=== PATIENT | female | born 2000 | race Caucasian/White ===

== ENCOUNTER 2019-12-08 17:09 | Outpatient (CLI) | payer BC, SELFPAY ==
[2019-12-08 17:33] LABS: Hematocrit 38.3 % (37.0-47.0); Hemoglobin 13.1 g/dL (12.0-15.0); Mean Corpuscular HGB Conc 34.2 g/dl (32-36); Mean Corpuscular Hemoglobin 30.8 pg (26-34); Mean Corpuscular Volume 89.9 fl (80-100); Mean Platelet Volume 9.4 fl (7.4-10.4); Platelet Count Result 352 k/mm3 (150-375); Red Blood Count 4.26 M/mm3 (4.2-5.4); White Blood Count 7.5 K/mm3 (4.5-10.0)
[2019-12-08 17:36] LABS: Add Urine Microscopic? NO; Appearance Urine Clear (Clear); Bilirubin Urine Negative (Negative); Blood Urine Negative (Negative); Color Urine Colorless (Yellow); Glucose Urine UA Negative (Negative); Ketones Urine Negative (Negative); Leukocyte Esterase Ur Negative LEU/UL (Negative); Nitrate Urine Negative (Negative); Protein Urine Negative (Negative); Specific Grav Ur 1.005 (1.001-1.035); Urobilinogen Urine Negative mg/dL (<2.0)
[2019-12-08 17:48] LABS: Alanine Aminotransferase 15 U/L (4-35); Albumin Level 4.5 g/dL (3.5-5.1); Alkaline Phosphatase 61 U/L (38-126); Aspartate Amino Transferase 14 U/L (14-36); Bilirubin,Total 0.3 mg/dL (0.2-1.3); Blood Urea Nitrogen 10 mg/dL (7-17); CRP 0.9 mg/dL (<1.0); Calcium 9.5 mg/dL (8.4-10.2); Carbon Dioxide 28 mmol/L (22-30); Chloride 102 mmol/L (98-107); Estimated Glomerular Filt Rate > 60; Glucose 89 mg/dL (65-105); Potassium 3.9 mmol/L (3.4-5.0); Sodium 138 mmol/L (137-145)
== END 2019-12-08 17:10 | disposition home or self-care (01) ==
PROVIDERS: Visit Provider Internal Medicine
DX: M32.9 Systemic lupus erythematosus, unspecified (principal)
CPT/HCPCS: 36415; 80053; 81003; 85027; 86140

== ENCOUNTER 2020-06-01 21:35 | Emergency (ER) | payer BC, SELFPAY ==
[2020-06-01 21:58] VITALS: BP 126/80; PULSE 90; RESP 16; TEMP 36.7; O2SAT 99
--- NOTE | 2020-06-01 22:45 | ED.GENADULT ---
HPI - General Adult General Chief complaint: Unspecified Stated complaint: ongoing nausea and vomiting. Time Seen by Provider: 06/01/20 22:45 History of Present Illness HPI narrative: Nausea, vomiting, diarrhea, and abdominal pain for the past month. She reports that she has not been consistently been able to tolerate solid foods for that entire time. She can usually keep down fluids. She reports that she has had consistent diarrhea since onset. It did improve with loperamide, but returned after stopping. The abdominal pain is diffuse, crampy. Worse with eating. No urinary symptoms. No fever. The symptoms started after eating peaches that were recalled for salmonella. She was apparently told that she probably had it, but never tested. She has SLE. Related Data Home Medications Medication Instructions Recorded Confirmed lamotrigine 100 mg tablet 100 mg PO DAILY 01/01/20 Allergies Allergy/AdvReac Type Severity Reaction Status Date / Time No Known Allergies Allergy Unverified 09/21/19 10:13 Review of Systems Review of Systems: All systems reviewed & are unremarkable except as noted in HPI and below Constitutional: Constitutional: Denies chills and Denies fever(s) Cardiovascular: Cardiovascular: Denies chest pain Respiratory: Respiratory: Denies dyspnea Gastrointestinal: Gastrointestinal: Reports abdominal pain, Reports bloating, Reports diarrhea, Reports nausea and Reports vomiting Genitourinary: Genitourinary: Denies hematuria and Denies dysuria Musculoskeletal: Musculoskeletal: Denies back pain Integumentary/Breasts: Skin/Breast: Reports rash Neurologic: Denies confusion, Reports dizziness and Denies weakness PMFSH Past Medical History Medical History Anxiety Arthritis Depression Lupus Migraines Family History Family History Mother Thyroid disease Social History Social History Smoking status: Never smoker Alcohol intake: never Exam Const: General: healthy appearing, no acute distress and alert Orientation/consciousness: patient oriented x3 HENMT: Head: normal to inspection Neck: Neck: normal visual inspection and no lymphadenopathy Chest: Chest palpation & inspection: no tenderness Resp: Effort & Inspection: normal respiratory effort Auscultation: clear to auscultation bilaterally, no rales, no rhonchi and no wheezes Cardio: Jugular venous distension: no JVD Rate: regular rate Rhythm: regular rhythm Heart sounds: no murmurs GI: Inspection: non-distended GI Palp: Yes Soft to palpation, Yes Tenderness to palpation present (GI), No Guarding due to palpation present (GI) and No Rebound tenderness present Skin: General skin exam: normal color Neuro: General: patient oriented x3, moves all extremities and CN's II-XI intact bilaterally Speech: normal speech Extrem: General: no edema Psych: Appearance: grossly normal and well kempt Affect: Anxious affect present Course Vital Signs Vital signs: Vital Signs Temperature 36.7 C 06/01/20 21:58 Pulse Rate 90 06/01/20 21:58 Respiratory Rate 16 06/01/20 21:58 Blood Pressure 126/80 06/01/20 21:58 Pulse Oximetry 99 06/01/20 21:58 Temperature 36.8 C 06/01/20 23:58 Pulse Rate 84 06/01/20 23:58 Respiratory Rate 16 06/01/20 23:58 Blood Pressure 121/76 06/01/20 23:58 Pulse Oximetry 100 06/01/20 23:58 Medical Decision Making MDM Narrative Medical decision making narrative: She appears well. I will obtain labs to rule out more serious pathology and send stool studies. In the mean time I will hydrate and treat symptomatically Medical Records Medical records reviewed: Yes I reviewed the patient's medical records. Vital Signs Vital Signs: Vital Signs Temperature 36.7 C 06/01/20 21:58 Pulse Rate 90 06/01/20 21:58 Respirato
[2020-06-01 23:11] LABS: Basophils Percent Auto 0.2 % (0.2-1.2); Eosinophils Percent Auto 0.5 % (0-4.4); Hematocrit 36.9 % (37.0-47.0); Hemoglobin 13.3 g/dL (12.0-15.0); Immature Granulocyte Absolute 0.04 K/mm3 (0.00-0.031); Immature Granulocyte Percent A 0.5 % (0-0.5); Lymphocytes Absolute Auto 1.35 K/mm3 (0.9-3.2); Lymphocytes Percent Auto 15.3 % (18.3-44.2); Mean Corpuscular Hemoglobin 31.3 pg (26-34); Mean Corpuscular Volume 86.8 fl (80-100); Mean Platelet Volume 9.3 fl (7.4-10.4); Monocytes Absolute Auto 0.7 K/mm3 (0.1-0.6); Monocytes Percent Auto 7.4 % (2.6-8.5); Neutrophils Absolute Auto 6.7 K/mm3 (1.3-6.7); Neutrophils Percent Auto 76.1 % (45.5-73.1); Platelet Count Result 359 k/mm3 (150-375); Red Blood Count 4.25 M/mm3 (4.2-5.4); Red Cell Distribution Width 12.6 % (11.5-14.5); White Blood Count 8.8 K/mm3 (4.5-10.0)
[2020-06-01] MEDS: DICYCLOMINE HCL INJ 20 MG/2 ML VIAL IM (23:11)
[2020-06-01] MEDS: SODIUM CHLORIDE 0.9% IV 1,000 ML 999 ML IV CONT (23:12)
[2020-06-01 23:21] LABS: Alanine Aminotransferase 37 U/L (4-35); Albumin Level 4.4 g/dL (3.5-5.1); Alkaline Phosphatase 67 U/L (38-126); Anion Gap 6 mmol/L (8-16); Aspartate Amino Transferase 17 U/L (14-36); Bilirubin,Total 0.3 mg/dL (0.2-1.3); Blood Urea Nitrogen 11 mg/dL (7-17); Calcium 9.4 mg/dL (8.4-10.2); Carbon Dioxide 26 mmol/L (22-30); Chloride 105 mmol/L (98-107); Estimated CRCL calculation 107 ml/min; Estimated Glomerular Filt Rate > 60; Glucose 108 mg/dL (65-105); Lipase 32 U/L (23-300); Potassium 3.5 mmol/L (3.4-5.0); Sodium 137 mmol/L (137-145)
[2020-06-01 23:33] LABS: Add Urine Microscopic? YES; Appearance Urine Clear (Clear); Bilirubin Urine Negative (Negative); Blood Urine 2+ (Negative); Color Urine Yellow (Yellow); Glucose Urine UA Negative (Negative); Ketones Urine Negative (Negative); Leukocyte Esterase Ur Negative LEU/UL (Negative); Nitrate Urine Negative (Negative); Protein Urine Negative (Negative); RBC Urine 0-2 /hpf (0-2); Squamous Epithelial Cell Urine Occasional /hpf (Few); Urobilinogen Urine Negative mg/dL (<2.0); WBC Urine 0-3 /hpf
[2020-06-01 23:58] VITALS: BP 121/76; PULSE 84; RESP 16; TEMP 36.8; O2SAT 100
== END 2020-06-02 | disposition home or self-care (01) ==
PROVIDERS: Emergency Provider Emergency Medicine
DX: R19.7 Diarrhea, unspecified (principal); R11.2 Nausea with vomiting, unspecified; R10.84 Generalized abdominal pain
CPT/HCPCS: 36415; 80053; 81001; 81025; 83690; 85025; 96360; 96372; 99283; J0500; J7030

== ENCOUNTER 2020-06-05 14:54 | Emergency (ER) | payer BC, SELFPAY ==
--- NOTE | ~2020-06-05 | XR_ITS ---
XR chest 2V DATE: 06/05/2020 16:01 INDICATION: Shortness of breath. Dizziness. Left facial and arm numbness. History of lupus. TECHNIQUE: PA and lateral views COMPARISON: 01/16/2019 PA and lateral chest FINDINGS: Normal heart size. No hilar or mediastinal enlargement. No pulmonary infiltrate or consolid ation, pleural effusion or pulmonary vascular congestion or pneumothorax. IMPRESSION: No active cardiopulmonary disease Reviewed, dictated and finalized at location A.
[2020-06-05 14:56] VITALS: BP 133/82; PULSE 120; RESP 18; TEMP 37.3; O2SAT 99
--- NOTE | 2020-06-05 14:59 | ECG_ITS ---
Measurements Intervals [place] Rate: 118 P: 66 DE: 166 QRS: 50 QRSD: 82 T: 91 QT: 434 QTc: 608 Interpretive Statements SINUS TACHYCARDIA POSSIBLE RIGHT ATRIAL ENLARGEMENT MINIMAL Q WAVES- INFERIOR LEADS BORDERLINE T WAVE ABNORMALITY- INF/LAT LEADS ABNORMAL ECG Electronically Signed On 06-05-2020 15:36:29 CDT by Chalino Shelley D.O.
[2020-06-05 15:17] LABS: Basophils Percent Auto 0.5 % (0.2-1.2); Eosinophils Percent Auto 0.5 % (0-4.4); Hematocrit 36.9 % (37.0-47.0); Immature Granulocyte Absolute 0.02 K/mm3 (0.00-0.031); Immature Granulocyte Percent A 0.3 % (0-0.5); Lymphocytes Absolute Auto 1.45 K/mm3 (0.9-3.2); Lymphocytes Percent Auto 23.5 % (18.3-44.2); Mean Corpuscular HGB Conc 35.2 g/dl (32-36); Mean Corpuscular Hemoglobin 30.7 pg (26-34); Mean Corpuscular Volume 87.2 fl (80-100); Mean Platelet Volume 9.3 fl (7.4-10.4); Monocytes Absolute Auto 0.6 K/mm3 (0.1-0.6); Monocytes Percent Auto 9.4 % (2.6-8.5); Neutrophils Absolute Auto 4.1 K/mm3 (1.3-6.7); Neutrophils Percent Auto 65.8 % (45.5-73.1); Platelet Count Result 380 k/mm3 (150-375); Red Blood Count 4.23 M/mm3 (4.2-5.4); Red Cell Distribution Width 12.3 % (11.5-14.5); White Blood Count 6.2 K/mm3 (4.5-10.0)
[2020-06-05 15:34] LABS: Alanine Aminotransferase 80 U/L (4-35); Albumin Level 4.3 g/dL (3.5-5.1); Alkaline Phosphatase 65 U/L (38-126); Anion Gap 7 mmol/L (8-16); Aspartate Amino Transferase 27 U/L (14-36); Bilirubin,Total 0.4 mg/dL (0.2-1.3); Blood Urea Nitrogen 12 mg/dL (7-17); Calcium 9.3 mg/dL (8.4-10.2); Carbon Dioxide 23 mmol/L (22-30); Chloride 107 mmol/L (98-107); Estimated CRCL calculation 123 ml/min; Estimated Glomerular Filt Rate > 60; Glucose 122 mg/dL (65-105); Potassium 3.9 mmol/L (3.4-5.0); Sodium 137 mmol/L (137-145)
[2020-06-05 16:42] VITALS: BP 119/73; PULSE 104; RESP 20; O2SAT 99
[2020-06-05] MEDS: SODIUM CHLORIDE 0.9% IV 1,000 ML 999 ML IV CONT (17:01)
[2020-06-05] MEDS: FAMOTIDINE 20 MG/2 ML VIAL IV PUSH (17:02)
[2020-06-05] MEDS: PROCHLORPERAZINE EDISYLATE 10 MG/2 ML VIAL IV PUSH (17:02)
[2020-06-05 17:11] LABS: D Dimer 0.29 ug/mL (<0.48)
[2020-06-05 17:45] LABS: Add Urine Microscopic? YES; Appearance Urine Clear (Clear); Bacteria Urine Trace /hpf; Bilirubin Urine Negative (Negative); Blood Urine 3+ (Negative); Color Urine Yellow (Yellow); Glucose Urine UA Negative (Negative); Ketones Urine Negative (Negative); Leukocyte Esterase Ur Negative LEU/UL (Negative); Mucus Urine Rare /lpf; Nitrate Urine Negative (Negative); Protein Urine Negative (Negative); RBC Urine 0-2 /hpf (0-2); Squamous Epithelial Cell Urine Many /hpf (Few); Urobilinogen Urine Negative mg/dL (<2.0); WBC Urine 0-3 /hpf
--- NOTE | 2020-06-05 18:09 | ED.GENADULT ---
HPI - General Adult General Chief complaint: Unspecified <Young Priest PA-C - Last Filed: 06/05/20 18:17> Stated complaint: difficulty standing up <SAMREEN Najera Last Filed: 06/05/20 18:17> Time Seen by Provider: 06/05/20 16:28 <SAMREEN Najera Last Filed: 06/05/20 18:17> Source: patient, family and old records reviewed <SAMREEN Najera Last Filed: 06/05/20 18:17> Mode of arrival: ambulatory <SAMREEN Najera Last Filed: 06/05/20 18:17> Limitations: no limitations <SAMREEN Najera Last Filed: 06/05/20 18:17> History of Present Illness HPI narrative: Patient is a 20-year-old female who presents noting that she had an episode of nausea vomiting and dizziness that began acutely this morning had an episode of emesis followed by tingling in the extremities and weakness and fatigue and anxiety patient with similar occurrences in the past has history of PTSD and notes that she has been having flares patient is followed by rheumatology psychology and primary care on arrival patient in the room in no distress. <SAMREEN Najera Last Filed: 06/05/20 18:17> Related Data Home medications: Home Medications Medication Instructions Recorded Confirmed lamotrigine 100 mg tablet 100 mg PO DAILY 01/01/20 azathioprine [Imuran] 50 mg PO BID 06/05/20 bupropion HCl 75 mg PO DAILY 06/05/20 norgestimate-ethinyl estradiol 1 tablet PO DAILY 06/05/20 [Estarylla] <SAMREEN Najera Last Filed: 06/05/20 18:17> Allergies/adverse reactions: Allergies Allergy/AdvReac Type Severity Reaction Status Date / Time No Known Allergies Allergy Unverified 06/05/20 16:43 <SAMREEN Najera Last Filed: 06/05/20 18:17> Review of Systems Review of Systems: All systems reviewed & are unremarkable except as noted in HPI and below <SAMREEN Najera Last Filed: 06/05/20 18:17> PMFSH Past Medical History Medical History: Medical History Anxiety Arthritis Depression Lupus Migraines <Young Priest PA-C - Last Filed: 06/05/20 18:17> Social History Social History: Social History Smoking status: Never smoker Alcohol intake: never Gender identity (if verbalized by the patient): Female <Young Priest PA-C - Last Filed: 06/05/20 18:17> Exam Narrative: Exam Narrative: GENERAL: Well-appearing, well-nourished, and in no acute distress. HEAD: Normocephalic, atraumatic. EYES: PERRLA and EOMI. ENT: Nares clear, no rhinorrhea or epistaxis. Mucous membranes moist. Oropharynx without tonsillar hypertrophy exudate or other lesions. NECK: Supple. No adenopathy or masses. CHEST: Clear to auscultation. No respiratory distress. No wheezes rales or rhonchi HEART: Regular rate and rhythm. No murmur heard. EXTREMITIES: Normal range of motion. No edema. SKIN: Warm, dry, no rash. NEURO: No focal deficits. Alert and oriented x3. Cranial nerves II through XII grossly intact. Normal speech and gait PSYCH: Normal mood and affect. <Young Priest PA-C - Last Filed: 06/05/20 18:17> Course Course Emergency Course: Patient in the room at this time resting comfortably after medications is feeling much better requesting to be discharged noting that her symptoms have resolved and she feels comfortable with discharge home patient noted improvement with medications <Young Priest PA-C - Last Filed: 06/05/20 18:17> Vital Signs Vital signs: Vital Signs Temperature 37.3 C 06/05/20 14:56 Pulse Rate 120 H 06/05/20 14:56 Respiratory Rate 18 06/05/20 14:56 Blood Pressure 133/82 06/05/20 14:56 Pulse Oximetry 99 06/05/20 14:56 Temperature 37.3 C 06/05/20 14:56 Pulse Rate 104 H 06/05/20 16:42 Respiratory Rate 20 06/05/20 16:42 Blood Pressure 119/73 09/0
== END 2020-06-05 18:17 | disposition home or self-care (01) ==
PROVIDERS: Emergency Medicine Emergency Medical Services; Family Medicine; Emergency Provider Emergency Medicine
DX: R11.2 Nausea with vomiting, unspecified (principal); R42 Dizziness and giddiness; M19.90 Unspecified osteoarthritis, unspecified site; F41.9 Anxiety disorder, unspecified; F32.9 Major depressive disorder, single episode, unspecified; R00.0 Tachycardia, unspecified; R94.31 Abnormal electrocardiogram [ECG] [EKG]
CPT/HCPCS: 36415; 71046; 80053; 81001; 85025; 85380; 93005; 96361; 96374; 96375; 99284; J0780; J7030

== ENCOUNTER 2020-07-19 12:28 | Outpatient (CLI) | payer BC, SELFPAY ==
[2020-07-19 12:56] LABS: Alanine Aminotransferase 103 U/L (4-35); Albumin Level 4.6 g/dL (3.5-5.1); Alkaline Phosphatase 51 U/L (38-126); Aspartate Amino Transferase 24 U/L (14-36); Bilirubin,Total 0.4 mg/dL (0.2-1.3)
== END 2020-07-19 12:29 | disposition home or self-care (01) ==
PROVIDERS: Visit Provider Internal Medicine Gastroenterology
DX: R94.5 Abnormal results of liver function studies (principal)
CPT/HCPCS: 36415; 80076

== ENCOUNTER 2020-08-02 01:21 | Outpatient (CLI) | payer BC, SELFPAY ==
[2020-08-02 20:51] LABS: SARS-CoV-2 RNA PCR Negative
== END 2020-08-02 01:22 | disposition home or self-care (01) ==
LOC: ANHCOVIDDT 01:21
PROVIDERS: Visit Provider Internal Medicine Gastroenterology
DX: Z01.812 Encounter for preprocedural laboratory examination (principal); Z20.828 Contact with and (suspected) exposure to other viral communicable diseases
CPT/HCPCS: 87635; C9803; U0003

== ENCOUNTER 2020-08-04 01:44 | Day surgery (SDC) | payer BC, SELFPAY ==
[2020-07-27 13:49] VITALS: BMI 25.4
--- NOTE | 2020-08-03 12:27 | WPDANESEPPF ---
Anes - Initial Pre Proc Eval Procedure: Operation Date: 08/04/20 08:00 Proposed Procedures p Esophagogastroduodenoscopy - Justyn Adams MD Date/Time: 08/03/20 12:27 Surgeon: Justyn Adams MD Pre Op Diagnosis: Epigastric Pain Patient Data Age: 20 Gender: F Height: 1.63 m Weight: 67.2 kg Allergies Allergy/AdvReac Type Severity Reaction Status Date / Time No Known Allergies Allergy Verified 08/04/20 07:09 Home Medications Medication Instructions Recorded Confirmed Type lamotrigine 100 mg tablet 100 mg PO DAILY 01/01/20 07/27/20 History azathioprine [Imuran] 50 mg PO BID 06/05/20 07/27/20 History bupropion HCl 75 mg PO DAILY 06/05/20 07/27/20 History norgestimate-ethinyl estradiol 1 tablet PO DAILY 06/05/20 07/27/20 History [Estarylla] calcium polycarbophil [FiberCon] 1,250 mg PO DAILY 07/27/20 07/27/20 History dicyclomine 20 mg PO BID 07/27/20 07/27/20 History fluoxetine [Prozac] 20 mg PO DAILY 07/27/20 07/27/20 History hydroxychloroquine [Plaquenil] 200 mg PO DAILY 07/27/20 07/27/20 History pantoprazole 40 mg PO DAILY 07/27/20 07/27/20 History prednisone 5 mg PO DAILY 07/27/20 07/27/20 History Patient hx anesthesia problems: none Family hx anesthesia problems: none PMFSH Past Medical History Medical History (Updated 06/09/20 @ 00:00 by Evelyn Bhandari) Anxiety Arthritis Depression Lupus Migraines Family History Family History Mother Thyroid disease Social History Social History Years smoked: 1 Smoking status: Never smoker Alcohol intake: never Substance use: current Substance use type: marijuana Living arrangements: with family Gender identity (if verbalized by the patient): Female Spiritual care concerns: No Anes - Eval Final PreProcedure Day of Procedure 08/03/20 12:27 Patient weight: overweight Heart: regular rate and rhythm Lungs: clear to auscultation and normal air movement Airway: Mallampati scale class II Neurological: alert and oriented Last oral intake: >/= 8 hours ASA classification: III Emergent: no Anesthetic plan: proceed Anesthesia type and monitoring: general GIVS Informed Consent: The patient's anesthetic plan and its attendant risks and benefits were discussed with the patient/family/POA. Questions were solicited and answers provided to the satisfaction of the patient/family/POA.
[2020-08-04 07:10] VITALS: BP 113/69; PULSE 86; RESP 20; TEMP 37.1; O2SAT 100
[2020-08-04] MEDS: LACTATED RINGERS 1,000 ML 150 ML IV CONT (07:13)
--- NOTE | 2020-08-04 07:53 | WPDGICN ---
Assessment and Plan Assessment and plan (1) Epigastric abdominal pain: Code(s): R10.13 - Epigastric pain Status: Acute Assessment and Plan: Because of persistent epigastric pain plan is for further evaluation with EGD. Patient is currently treated with steroids raising the question of ulcer disease. She has seems to have improvement while being on PPI therapy further recommendations will be given after endoscopy. (2) SLE (systemic lupus erythematosus related syndrome): Code(s): M32.9 - Systemic lupus erythematosus, unspecified Status: Acute GI Consult Note Consult date/time: 08/04/20 07:53 HPI: Rosaura Eden is a 20 year old female Seen in evaluation because of abdominal pain. Patient reports midepigastric pain. She states that occurs intermittently. Rather persistent. She has a history of SLE ED. Recently placed on prednisone in concomitant with this notices some improvement in pain. She has empirically been treated with pantoprazole 40 mg p.o. daily. There is some concern over ulcers associated with steroid use. Family history is noncontributory. Patient denies any bleeding or weight loss. She presents today for EGD. Review of Systems Review of Systems: All systems reviewed & are unremarkable except as noted in HPI and below PMFSH Past Medical History Medical History (Updated 08/04/20 @ 07:55 by Justyn Adams MD) Anxiety Arthritis Depression Lupus Migraines Family History Family History Mother Thyroid disease Social History Social History Years smoked: 1 Smoking status: Never smoker Alcohol intake: never Substance use: current Substance use type: marijuana Living arrangements: with family Gender identity (if verbalized by the patient): Female Spiritual care concerns: No Meds Home Medications and Allergies Home Medications Medication Instructions Recorded Confirmed Type lamotrigine 100 mg tablet 100 mg PO DAILY 01/01/20 07/27/20 History azathioprine [Imuran] 50 mg PO BID 06/05/20 07/27/20 History bupropion HCl 75 mg PO DAILY 06/05/20 07/27/20 History norgestimate-ethinyl estradiol 1 tablet PO DAILY 06/05/20 07/27/20 History [Estarylla] calcium polycarbophil [FiberCon] 1,250 mg PO DAILY 07/27/20 07/27/20 History dicyclomine 20 mg PO BID 07/27/20 07/27/20 History fluoxetine [Prozac] 20 mg PO DAILY 07/27/20 07/27/20 History hydroxychloroquine [Plaquenil] 200 mg PO DAILY 07/27/20 07/27/20 History pantoprazole 40 mg PO DAILY 07/27/20 07/27/20 History prednisone 5 mg PO DAILY 07/27/20 07/27/20 History Allergies Allergy/AdvReac Type Severity Reaction Status Date / Time No Known Allergies Allergy Verified 08/04/20 07:09 Vital Signs Vital Signs - 24 hr 08/04/20 07:10 Temperature 98.8 F Pulse Rate 86 Respiratory Rate 20 Blood Pressure 113/69 Pulse Oximetry 100 Exam Narrative: Exam Narrative: Physical exam reveals patient to be alert. Vital signs stable. HEENT exam unremarkable. Lungs are clear to auscultation and percussion. Heart is without murmur or extra sounds. Abdominal exam bowel sounds are present soft nontender with no organomegaly. Digital external rectal exam unremarkable in the office.
[2020-08-04 08:15] VITALS: BP 111/66; PULSE 77; RESP 23; O2SAT 100
[2020-08-04 08:25] VITALS: BP 113/74; PULSE 76; RESP 16; O2SAT 100
[2020-08-04 08:35] VITALS: BP 110/70; PULSE 72; RESP 17; O2SAT 100
== END 2020-08-04 08:50 | disposition home or self-care (01) ==
PROVIDERS: Visit Provider Internal Medicine Gastroenterology
PROC: 0DJ08ZZ Inspection of Upper Intestinal Tract, Via Natural or Artificial Opening Endoscopic (ICD-10-PCS; CPT 43235; principal; 2020-08-04 08:00)
DX: R10.13 Epigastric pain (principal); M32.9 Systemic lupus erythematosus, unspecified; F41.8 Other specified anxiety disorders
CPT/HCPCS: 43239; 87081; J2704; J7120

== ENCOUNTER 2021-07-11 14:33 | Emergency (ER) | payer BC, SELFPAY ==
--- NOTE | ~2021-07-11 | XR_ITS ---
EXAMINATION: XR chest 2V EXAM DATE: 07/11/2021 15:21 INDICATION: SLE, with mid left CP; hx of Lupus. TECHNIQUE: Frontal and lateral projections of the chest obtained and reviewed. Comparison is made to prior examination from 06/15/2020. FINDINGS: The lungs are clear. There are no pleural effusions. The cardiomediastinal silhouette is within normal limits. There is no pneumothorax suspected. The bones and soft tissues are unremarkab le. IMPRESSION: Normal chest x-ray exam. Reviewed, dictated and finalized at location A. IMPRESSION: Normal chest x-ray exam.
[2021-07-11 14:37] VITALS: BP 135/78; PULSE 88; RESP 16; TEMP 36.5; O2SAT 100
--- NOTE | 2021-07-11 14:46 | ED.CHESTPAIN ---
HPI - Chest Pain General Chief Complaint: Chest Pain Stated Complaint: chest pain/nausea/dizzy Source: patient and RN notes reviewed Limitations: no limitations History of Present Illness HPI narrative: The vaccinated patient, who has history of SLE on Imuran, presents with chest pains. Patient states she has 1/2-hour exacerbation, of 1 week recurrence of several month history, of left chest pain. Symptoms seem to be concurrent with increasing lupus discomfort arthralgias of her extremities, with a scalp hairline eruption. She complains of dull sternal and clavicular chest pain that is worse with movement, better at rest. No recent steroids, noncompliance, fever, cough, calf pain/edema, positional component [not better upright], no reflux/acid taste, palpitations, presyncope-she does feel lightheaded. The EKG is unchanged from prior ; she declines PCR testing currently. Related Data Home Medications Medication Instructions Recorded Confirmed azathioprine [Imuran] 50 mg PO BID 06/05/20 07/27/20 calcium polycarbophil [FiberCon] 1,250 mg PO DAILY 07/27/20 07/27/20 fluoxetine [Prozac] 20 mg PO DAILY 07/27/20 07/27/20 hydroxychloroquine [Plaquenil] 200 mg PO DAILY 07/27/20 07/27/20 pantoprazole 40 mg PO DAILY 07/27/20 07/27/20 Allergies Allergy/AdvReac Type Severity Reaction Status Date / Time No Known Allergies Allergy Verified 08/04/20 07:09 Review of Systems Review of Systems: General/Constitutional: No weight loss,fever Eyes: N0: Redness,discharge Ears/Nose/Throat: No: Epistaxis,ear discharge Respiratory: Denies: Hemoptysis Gastrointestinal: No Vomiting, Bleeding-rectal Skin: No Lumps, eruption Neurologic: No Focal Weakness,Sz Hematologic: Denies: Petechiae/Purpura Psychiatric: No: Suicida ideationl All Other Systems: Reviewed and Negative [facility] Past Medical History Medical History (Updated 07/12/21 @ 00:02 by Evelyn Bhandari) Anxiety Arthritis Depression Lupus Migraines Family History Family History (Updated 10/26/20 @ 13:59 by Kaleigh Syed [facility]) Mother Thyroid disease Depression Father Depression Sibling Depression Social History Social History Years smoked: 1 Smoking status: Never smoker Alcohol intake: never Substance use: current Substance use type: marijuana Gender identity (if verbalized by the patient): Female Spiritual care concerns: No Comments At time of signature, agree with nursing past medical, surgical, social and family history. There is no relevant family history pertinent to the presenting complaint Exam Narrative: General Appearance: Well appearing, No distress Conjunctiva clear Ears: External ear normal Nose: Normal nose Mouth/Throat: Normal appearing, Normal lips Neck: Supple Respiratory: Point tender sternum and left clavicle, CTA, airway patent, No respiratory distress Cardiovascular: RRR Abdomen: Soft, Non-tender, Musculoskeletal: Full strength Skin: Warm, Dry; follicular hairline scalp eruption Neurological: A&O x3, CN II-X intact Psychiatric: Normal mood, Normal affect Course Course Emergency Course: Films visualized, interpreted by radiologist, agree, normal see report EKG sinus rhythm: 83 bpm, possible LAE, ND 0.16, lateral T wave abnormalities/flipped, QTc 437, axis 30 Vital Signs Vital signs: Vital Signs Temperature 97.7 F 07/11/21 14:37 Pulse Rate 88 07/11/21 14:37 Respiratory Rate 16 07/11/21 14:37 Blood Pressure 135/78 07/11/21 14:37 Pulse Oximetry 100 07/11/21 14:37 Temperature 97.7 F 07/11/21 14:37 Pulse Rate 88 07/11/21 14:37 Respiratory Rate 16 07/11/21 14:37 Blood Pressure 135/78 07/11/21 14:37 Pulse Oximetry 100 07/11/21 14:37 Discharge Plan Discharge Clinical Impression: Acute chest wall pain Patient Disposition: Home, Self-Care Condition: Stable Instructions: Chest Wall Pain (ED)
--- NOTE | 2021-07-11 14:47 | ECG_ITS ---
Measurements Intervals [place] Rate: 83 P: 53 [place]: 166 QRS: 29 QRSD: 82 T: 144 QT: 397 QTc: 469 Interpretive Statements SINUS RHYTHM POSSIBLE LEFT ATRIAL ENLARGEMENT MINIMAL Q WAVES- INFERIOR LEADS T WAVE ABNORMALITY IN LAT/HIGH LAT LEADS- CONSIDER ISCHEMIA BASELINE ARTIFACT- II, III ABNORMAL ECG Electronically Signed On 07-11-2021 16:05:08 CDT by Chalino Shelley D.O.
== END 2021-07-11 15:31 | disposition home or self-care (01) ==
PROVIDERS: Emergency Provider Emergency Medicine
DX: R07.89 Other chest pain (principal); M19.90 Unspecified osteoarthritis, unspecified site; F41.9 Anxiety disorder, unspecified; F32.9 Major depressive disorder, single episode, unspecified; M32.9 Systemic lupus erythematosus, unspecified
CPT/HCPCS: 71046; 93005; 99213; G0463

== ENCOUNTER 2021-12-29 17:49 | Emergency (ER) | payer BC, SELFPAY ==
--- NOTE | ~2021-12-29 | US_ITS ---
EXAMINATION: US OB <=14 wk fetus w TV DATE: 12/30/2021 01:44 INDICATION: Pelvic pain and bleeding, possible ectopic TECHNIQUE: Real-time pelvic transabdominal and transvaginal ultrasound was performed. COMPARISON: None. FINDINGS: The uterus measures 7.2 x 3.9 x 4.9 cm. No intrauterine gestational sac is identified. The endometrial complex measures 8 mm in thickness. The right ovary measures 2.1 x 1.7 x 1.7 cm. The lef t ovary measures 3.2 x 1.9 x 1.9 cm. There is normal vascular flow in the ovaries. There is no free f luid in the pelvis. IMPRESSION: 1. of unknown location. Although no intrauterine gestational sac is seen, this may be due t o early gestation. If the patient is clinically stable, recommend followup with serial beta-hCG and u ltrasound. Reviewed, dictated and finalized at location A. IMPRESSION: 1. of unknown location. Although no intrauterine gestational sac is s een, this may be due to early gestation. If the patient is clinically stable, r ecommend followup with serial beta-hCG and ultrasound.
[2021-12-29 18:00] VITALS: BP 128/70; PULSE 91; RESP 16; TEMP 36.4; O2SAT 100
[2021-12-29 18:16] LABS: Basophils Percent Auto 0.4 % (0.2-1.2); Eosinophils Absolute Auto 0.1 K/mm3 (0-0.3); Eosinophils Percent Auto 1.2 % (0-4.4); Hematocrit 35.2 % (37.0-47.0); Hemoglobin 12.2 g/dL (12.0-15.0); Immature Granulocyte Absolute 0.01 K/mm3 (0.00-0.031); Immature Granulocyte Percent A 0.2 % (0-0.5); Lymphocytes Absolute Auto 1.31 K/mm3 (0.9-3.2); Lymphocytes Percent Auto 25.7 % (18.3-44.2); Mean Corpuscular HGB Conc 34.7 g/dl (32-36); Mean Corpuscular Hemoglobin 33.5 pg (26-34); Mean Corpuscular Volume 96.7 fl (80-100); Mean Platelet Volume 9.4 fl (7.4-10.4); Monocytes Absolute Auto 0.4 K/mm3 (0.1-0.6); Monocytes Percent Auto 8.1 % (2.6-8.5); Neutrophils Absolute Auto 3.3 K/mm3 (1.3-6.7); Neutrophils Percent Auto 64.4 % (45.5-73.1); Platelet Count Result 268 k/mm3 (150-375); Red Blood Count 3.64 M/mm3 (4.2-5.4); Red Cell Distribution Width 12.5 % (11.5-14.5); White Blood Count 5.1 K/mm3 (4.5-10.0)
--- NOTE | 2021-12-29 23:53 | ED.PREGNANCY ---
HPI - General Chief complaint: Vaginal Bleeding Stated complaint: I think I may be miscarrying Time Seen by Provider: 12/29/21 23:22 Source: patient Mode of arrival: ambulatory Limitations: no limitations History of Present Illness HPI Narrative: This is a 21 year old , about 5 and half weeks by LMP that presents to the ER for vaginal bleeding. Started yesterday. Associated with pelvic cramping. She does not currently have an OB. Denies fever or vomiting. Related Data Home Medications Medication Instructions Recorded Confirmed azathioprine [Imuran] 50 mg PO BID 06/05/20 07/27/20 calcium polycarbophil [FiberCon] 1,250 mg PO DAILY 07/27/20 07/27/20 fluoxetine [Prozac] 20 mg PO DAILY 07/27/20 07/27/20 hydroxychloroquine [Plaquenil] 200 mg PO DAILY 07/27/20 07/27/20 pantoprazole 40 mg PO DAILY 07/27/20 07/27/20 Allergies Allergy/AdvReac Type Severity Reaction Status Date / Time No Known Allergies Allergy Verified 08/04/20 07:09 Review of Systems Review of Systems: CONSTITUTIONAL: Denies fever GASTROINTESTINAL: Reports pelvic cramping All systems reviewed & are unremarkable except as noted in HPI and below PMFSH Past Medical History Medical History (Updated 12/30/21 @ 02:38 by Radha Guzman PA-C) Anxiety Arthritis Depression Lupus Migraines Family History Family History (Updated 10/26/20 @ 13:59 by Kaleigh Syed [facility]) Mother Thyroid disease Depression Father Depression Sibling Depression Social History Social History (Updated 12/30/21 @ 00:28 by Radha Guzman PA-C) Smoking status: Never smoker Alcohol intake: never Gender identity (if verbalized by the patient): Female Spiritual care concerns: No Exam Narrative: GENERAL: Well-appearing, well-nourished, and in no acute distress. HEAD: Normocephalic, atraumatic. EYES: EOMI. CHEST: Clear to auscultation. No respiratory distress. No wheezes rales or rhonchi HEART: Regular rate and rhythm. No murmur heard. Normal peripheral pulses. ABDOMEN: Soft, nontender, nondistended, normal active bowel sounds. EXTREMITIES: Normal range of motion. No edema. SKIN: Warm, dry, no rash. NEURO: No focal deficits. Alert and oriented x3. PSYCH: Normal mood and affect PELVIC: Normal external genitalia. Normal appearing cervix. Small amount of dark red blood in the vaginal vault Course Vital Signs Vital signs: Vital Signs Temperature 97.6 F 12/29/21 18:00 Pulse Rate 91 12/29/21 18:00 Respiratory Rate 16 12/29/21 18:00 Blood Pressure 128/70 12/29/21 18:00 Pulse Oximetry 100 12/29/21 18:00 Temperature 97.6 F 12/29/21 18:00 Pulse Rate 84 12/30/21 02:24 Respiratory Rate 16 12/30/21 02:24 Blood Pressure 130/76 12/30/21 02:24 Pulse Oximetry 99 12/30/21 02:24 MDM - OB/Uterine Contractions MDM Narrative Medical decision making narrative: Patient presents to the emergency department for bleeding and cramping in early . Her vitals are stable. Hemoglobin is 12.2. Small amount of blood noted in the vaginal vault. Patient is O-. RhoGam was given. Quantitative beta-hCG noted to be 1287. Obstetrics ultrasound does not show an intrauterine or extrauterine gestation. Ovaries are normal. Recommend correlation with quantitative beta hCG and follow-up ultrasound as clinically indicated. Patient and family updated on case findings. Will be given follow-up with OB and orders for repeat quant. She is stable and felt appropriate for further outpatient evaluation. She was given warnings to return to the ER Lab Data Attestation: I reviewed the patient's lab results. Result diagrams: 12/29/21 18:10 Labs: Lab Results 12/29/21 12/29/21 12/29/21 Range/Units 18:10 18:10 20:56 WBC 5.1 (4.5-10.0) K/mm3 RBC 3.64 L (4.2-5.4) M/mm3 Hgb 12.2 (12.0-15.0) g/dL Hct 35.2 L (37.0-47.0) % MCV 96.7 (80-100) fl MCH 33.5 (26-34) pg MCHC 34.7 (32-36) g/d
[2021-12-30] VITALS: BP 128/74; PULSE 83; RESP 16; O2SAT 98
[2021-12-30 02:24] VITALS: BP 130/76; PULSE 84; RESP 16; O2SAT 99
[2021-12-30] MEDS: RHO(D) IMMUNE GLOBULIN 300 MCG/2 ML SYRINGE IM (02:32)
== END 2021-12-30 02:47 | disposition home or self-care (01) ==
PROVIDERS: Emergency Medicine; Emergency Provider Emergency Medicine
DX: O20.0 Threatened abortion (principal); Z3A.01 Less than 8 weeks gestation of pregnancy
CPT/HCPCS: 36415; 76801; 76817; 84702; 85025; 85461; 90384; 96372; 99284; J2790

== ENCOUNTER 2022-01-03 16:12 | Outpatient (CLI) | payer BC, SELFPAY ==
[2022-01-03 17:15] LABS: Beta HCG Quantitative 704.05 mIU/ML
== END 2022-01-03 16:13 | disposition home or self-care (01) ==
PROVIDERS: Visit Provider Obstetrics & Gynecology
DX: O02.1 Missed abortion (principal); Z3A.00 Weeks of gestation of pregnancy not specified
CPT/HCPCS: 36415; 84702

== ENCOUNTER 2022-01-15 08:55 | Outpatient (RCR) | payer BC, SELFPAY ==
[2022-01-15 09:54] LABS: Beta HCG Quantitative 5.12 mIU/ML
== END 2022-04-15 23:59 | disposition home or self-care (01) ==
LOC: ANHLAB 08:55
PROVIDERS: Visit Provider Obstetrics & Gynecology
DX: O02.1 Missed abortion (principal); Z3A.00 Weeks of gestation of pregnancy not specified
CPT/HCPCS: 36415; 84702

== ENCOUNTER 2022-05-07 12:54 | Outpatient (CLI) | payer BC, SELFPAY ==
[2022-05-07 13:32] LABS: Beta HCG Quantitative < 2.39 mIU/ML
== END 2022-05-07 12:55 | disposition home or self-care (01) ==
LOC: ANHLAB 12:56
PROVIDERS: Visit Provider Obstetrics & Gynecology
DX: N92.6 Irregular menstruation, unspecified (principal)
CPT/HCPCS: 36415; 84702

== ENCOUNTER 2025-07-29 08:53 | Emergency (ER) | payer OTHER, SELFPAY ==
--- NOTE | ~2025-07-29 | CT_ITS ---
EXAMINATION: CT lumbar spine wo con DATE: 07/29/2025 10:10 INDICATION: Low back pain. TECHNIQUE: Computed tomography (CT) of the lumbar spine was performed without intravenous contrast. Automated exposure control and iterative reconstruction technique were employed. The dose-length product was 892.47 mGy-cm. COMPARISON: None FINDINGS: There is 7 degrees levocurvature of thoracolumbar spine. Vertebral body heights are normal. There is mildly decreased disc height at L5-S1. The following disc levels are specifically discussed: L1-L2: The disc does not extend beyond the endplate margin. There is mild bilateral facet joint osteoarthritis. There is no neural foraminal stenosis. There is no central canal stenosis. L2-L3: The disc does not extend beyond the endplate margin. There is mild bilateral facet joint osteoarthritis. There is no neural foraminal stenosis. There is no central canal stenosis. L3-L4: The disc does not extend beyond the endplate margin. There is mild bilateral facet joint osteoarthritis. There is no neural foraminal stenosis. There is no central canal stenosis. L4-L5: The disc does not extend beyond the endplate margin. There is mild bilateral facet joint osteoarthritis. There is no neural foraminal stenosis. There is no central canal stenosis. L5-S1: The disc is bulging. There is mild bilateral facet joint osteoarthritis. There is mild bilateral neural foraminal stenosis. There is mild central canal stenosis. IMPRESSION: 1. Mild lumbar spondylosis. Reviewed, dictated and finalized at location E. IMPRESSION: 1. Mild lumbar spondylosis.
[2025-07-29 09:08] VITALS: BP 126/79; PULSE 88; RESP 16; TEMP 36.8; O2SAT 96
--- OUTSIDE RECORDS SUMMARY | 2025-07-29 09:14 | XMS_ITS | Clinical Summary ---
Author Organization [facility] Address [address] [place] [address] Care Team Providers Care Annealing Furnace Tender Name Role Phone Wendy Talbot MD Primary Care Provider [phone] Allergies No known active allergies Medications lamoTRIgine (LaMICtal) 100 mg tablet Take 100 mg by mouth daily Active calcium carb/vit D3/minerals (CALCIUM-VITAMI N D ORAL) daily Take 2 tabs daily Active polycarbophil (FIBERCON) 625 mg tablet daily Active vitamin K42-cgudc acid 0.5-1 mg tablet Acti ve cholecalciferol (VITAMIN D-3) 400 unit capsule daily Take 2 tabs daily Active azaTHIOprine (IMURAN) 50 mg tablet Take 3 tablets (150 mg total) by mouth daily 270 tablet 1 09/05/2022 Active hydrOXYchloroQU INE (PLAQUENIL) 200 mg tablet TAKE 1 TABLET(200 MG) BY MOUTH TWICE DAILY 180 tablet 1 11/01/2022 Active FLUoxetine (PROzac) 20 mg capsule daily Take 2 tabs daily 09/14/2022 Active Vraylar 1.5 mg capsule daily 10/08/2022 Active cyclobenzaprine (FLEXERIL) 10 mg tablet Take 1 tablet (10 mg total) by mouth 2 (two) times a day as needed for muscle spasms 20 tablet 11/20/2023 Active ibuprofen (ADVIL,MOTRIN) 800 mg tablet Take 1 tablet (800 mg total) by mouth 3 (three) times a day as needed for pain 30 tablet 11/20/2023 Active HYDROcodone-jose maria taminophen (NORCO) 5-325 mg per tabletIndicatio ns:Pain Take 1 tablet by mouth every 4 (four) hours as needed for pain 15 tablet 11/20/2023 Active Active Problems Problem Noted Date Diagnosed Date Vitamin D deficiency 12/07/2022 Assessment & Plan (12/07/2022 8:36 AM RESIDENT SERVICES COORDINATOR): Last value 28 on 11/26/2022. Increased per PCP. Systemic lupus erythematosus 08/09/2022 Assessment & Plan (12/07/2022 8:35 AM RESIDENT SERVICES COORDINATOR): Chronic, stable. Currently on hydroxychloroquine, azathioprine 150 mg daily. Main symptoms at this time include joint pains with inflammation. I recommend continuing hydroxychloroquine, Azathioprine same dose for now. Assessment & Plan (08/09/2022 1:09 PM RESIDENT SERVICES COORDINATOR): Chronic, stable. Currently on hydroxychloroquine 200 mg daily, azathioprine 150 mg daily. Main symptoms at this time include joint pains. We discussed increasing hydroxychloroquine to 200 mg twice daily to see if that helps improve her joint pains. She previously could not tolerate due to nausea. She was advised to reach out if she has side effects with increasing dose. Long-term use of immunosuppressant medication Assessment & Plan (12/07/2022 8:36 AM RESIDENT SERVICES COORDINATOR): Patient is on immunosuppressive medication requiring intensive lab monitoring for medication safety. Labs 11/26/2022 were reviewed in [employer] system. CMP normal. CBC normal. UA with negative blood/protein. No evidence of medication toxicity. Assessment & Plan (08/09/2022 1:10 PM RESIDENT SERVICES COORDINATOR): Patient is on immunosuppressive medication requiring intensive lab monitoring for medication safety. Check labs to monitor for cytopenias or liver toxicity with azathioprine. Weight gain 08/09/2022 Assessment & Plan (08/09/2022 1:10 PM RESIDENT SERVICES COORDINATOR): Checking thyroid labs with history of weight gain. Screening for thyroid disorder 08/09/2022 Assessment & Plan (08/09/2022 1:10 PM RESIDENT SERVICES COORDINATOR): Checking thyroid labs with history of weight gain. Encounters Date Type Department Care Team Description 07/05/2025 4:19 PM CDT - 07/05/2025 11:59 PM CDT Hospital Encounter [facility] [address] [place] [address] Pre-employment health screening examination Discharge Disposition: Discharge to home or self care 07/05/2025 Orders Only [facility] Healthcare Occupatiunc health Health [address] [place] [address] Robson Fitzgerald MD Pre-employment health screening examination (Primary Dx) from Last 3 Months Immunizations Immunization Administration Dates Next Due DTP / HiB 1999 DTaP 01/22/2004, 0,1999,03/21 HPV9 03/14/2017 Hep B / HiB 07/26/2000,1999 Hep B, Adolescent or Pediatric 1999 HiB 1999 IPV 01/22/2004,07/26/2000,1999 Influenza, Trivalent, IM (MDV) 08/29/2022 MMR 01/22/2004,07/26/2000 Meningococcal MCV4P (Menactra) 08/02/2016 OPV 1999 Pfizer Sars-Cov-2 Bivalent V accination (12+ YRS) 08/29/2022 Tdap 04/30/2013,12/21/2011 Medical History Medical History Date Comments Lupus Family History Medical History Relation Name Comments No Known Problems Father Lupus Mother Rheum arthritis Mother No Known Problems Other siblings (6) Relation Name Status Comments Father Alive Mother Alive Other siblings (6) Alive Social History Tobacco Use Types Packs/Day Years Used Date Smoking Tobacco: Former Cigarettes Tobacco Cessation:Counseling Given: Not Answered AUDIT-C Answer Date Recorded Q1: How often do you have a drink containing alcohol? Never 12/07/2022 Q2: How many drinks containi ng alcohol do you have on a typical day when you are drinking? Patient does not drink Q3: How often do you have si x or more drinks on one occasion? Never 12/07/2022 Personal Safety Answer Date Recorded Have you ever been in or are you currently in a harmful physical or emotional relationship or is someone making you feel afraid or unsafe? Denies 01/30/2025 Comments Unknown Sex and Gender Information Value Date Recorded Sex Assigned at Not on file Legal Sex Female 7:59 PM CDT Gender Identity Not on file Sexual Orientation Not on file Obstetrics History Last Filed Vital Signs Vital Sign Reading Time Taken Comments Blood Pressure 123/72 01/30/2025 3:20 AM CDT Pulse 78 01/30/2025 3:20 AM CDT Temperature 36.7 C (98.1 F) 01/30/2025 3:20 AM CDT Respiratory Rate 17 01/30/2025 3:20 AM CDT Oxygen Saturation 100% 01/30/2025 3:20 AM CDT Inhaled Oxygen Concentration - - Weight 79.4 kg (175 lb) 01/30/2025 3:37 AM CDT Height 166.5 cm (5' 5.55) 12/07/2022 8:44 AM CS T Body Mass Index 28.63 12/07/2022 8:44 AM RESIDENT SERVICES COORDINATOR Plan of Treatment Health Maintenance Due Date Last Done Comments Cervical Cancer Screening 1999 Depression Screening 1999 Hepatitis C Screening 1999 Varicella Vaccines (1 of 2 - 13+ 2-dose series) 01/14/2012 Regular Well Visit/Exam 18-64 2017 HPV Vaccines (2 - 3-dose series) 04/11/2017 03/14/20 17 Pneumococcal vaccine <65 (1 of 2 - PCV) 2018 Zoster Vaccine (1 of 2) 2018 DTaP/Tdap/Td Vaccine (8 - Td or Tdap) 04/30/2023 04/30/2013, 12/21/2011, 01/22/2004, Additional history exists Covid-19 Vaccine ( - 2024-2 6 season) 2025 07/23/2023, 08/29/2022, 08/29/2022, Additional history exists Influenza Vaccine (#1) 2025 07/23/2023, 2021 Hepatitis B Screening Completed 07/26/2000 , 1999, 1999 Procedures Procedure Name Priority Date/Time Associated Diagnosis Comments T-SPOT.TB Routine 07/05/2025 8:51 AM CDT Pre-employment health screening examination VARICELLA ZOSTER ANTIBODY, IGG Routine 07/05/2025 8:51 AM CDT Pre-employment health screening examination from Last 3 Months Results * T-SPOT.TB Blood (07/05/2025 8:51 AM CDT) [facility] T-SPOT.TB Negative SeeBelow Comment: Normal Value: Negative A negative test result does not exclude the possibility of exposure to or infection with Mycobacterium tuberculosis (M. tuberculosis). Patients with recent exposure to TB infected individuals exhibiting a negative T-SPOT.TB result should be considered for retesting within 6 weeks or if other relevant clinical symptoms indicate. Results from T-SPOT.TB testing must be used in conjunction with each individual's epidemiological history, current medical status, and results of other diagnostic evaluations. The T-SPOT.TB test is qualitative and results are reported as positive, borderline or negative, given that the test controls perform as expected. In line with the Centers for Disease Control and Prevention's 2010 recommendation to report quantitative measurements alongside the qualitative result, the laboratory provides spot counts for informational purposes only. The T-SPOT.TB test should not be interpreted as a quantitative test. T-SPOT.TB Panel A Spot Count 0 [facility] T-SPOT.TB Panel B Spot Count 0 [facility] T-SPOT.TB Negative Control Passed [facility] T-SPOT.TB Positive Control Passed [facility] Comment: Test Performed at: [facility] [employer] [address] [place] [id number] CURTIS BEASLEY,PHD Blood 07/05/2025 8:51 AM CDT 07/05/2025 4:46 PM CDT Narrative [facility] - 07/07/2025 2:02 PM CDT Bill to [facility] - 8611 Patient is employed by/enrolled at:[facility] [facility] Behavioral Health us Robson Fitzgerald MD LAB MICROBIOLOGY - GENERAL OR DERABLES Final Result [facility] Department [place] [address] * Varicella Zoster IgG antibody Blood (07/05/2025 8:51 AM CDT) [facility] IgG Reactive Reactive Comment:Reactive: Results colindres ggest response to immunization or prior exposure to the virus. Blood 07/05/2025 8:51 AM CDT 07/05/2025 4:37 PM CDT Narrative [facility] - 07/06/2025 8:52 AM CDT Bill to [facility] - 1520. Patient is employed by/enrolled at:->[employer] [facility] Behavioral Health us Robson Fitzgerald MD LAB MICROBIOLOGY - GENERAL OR DERABLES Final Result [facility] Department [place] [address] from Last 3 Months Insurance [employer] OOS [employer] Care Teams Annealing Furnace Tender Relationship Specialty Start Date End Date Wendy Talbot MD [address] [place] [address] PCP - General Internal Medicine 01/30/25
--- OUTSIDE RECORDS SUMMARY | 2025-07-29 09:14 | XMS_ITS | Encounter Summary ---
Author Organization [facility] Address [address] [place] [address] Care Team Providers Care Dehairer Name Role Phone Hudson Rivera MD Primary Care Provider [phone] Reason for Visit * Reason Comments Patient Communication Encounter Details Date Type Department Care Team (Late st Contact Info) Description 03/26/2025 Telephone [facility] Internal Medicine [place] Johnathan [address] [facility] [address] [place] [address] [place] [address] [facility] [address] [place] [address] Patient Communication Social History Tobacco Use Types Packs/Day Years Used Date Smoking Tobacco: Never Passive Smoke Exposure: Never Smokeless Tobacco: Never Alcohol Use Standard Drinks/Week Comments Not Currently 0 (1 standard drink = 0.6 oz pur e alcohol) Feeling Safe Answer Date Recorded Are you in a relationship wi th someone who hurts you emotionally and/or physically? No 12/09/2023 Comments No Sex and Gender Information Value Date Recorded Sex Assigned at Not on file Legal Sex Female 1:50 PM CDT Gender Identity Not on file Sexual Orientation Not on file documented as of this encounter Miscellaneous Notes * Telephone Encounter - Avery Sykes - 03/26/2025 3:42 PM CDT Copied from [facility] #[id number]. Topic: CPA Information Request >> Mar 26, 2025 3:38 PM Avery Cruz wrote: Caller is returning phone call from clinic. Caller Name: Rosaura Meaghan Gauthiererd Patient/Caregiver Callback Number: [phone] Clinic Did Not Leave Note In Chart Call Notes: Holdenshahriar called in regarding a callback from the office of . Patient/Caller returning call, no note documented with instructions from clinic. I informed I would transfer to clinical staff for assistance. I called [employer] [facility] & no answer. I informed Rosaura someone from clinical staff will callback at their earliest conveincence. Please Advise, Attempted transfer to [employer] [facility] and no answer, message routed to pool. documented in this encounter Plan of Treatment Upcoming Encounters Date Type Department Care Team (Late st Contact Info) Description 07/29/2025 12:00 PM CDT Video Visit [facility] Internal Medicine [place] Mann [address] [place] [phone] Jenise Martin FNP [address] [place] [phone] documented as of this encounter Visit Diagnoses Not on filedocumented in this encounter Additional Health Concerns Assessment Noted Time PHQ-9 Depression Total Score: 3 04/30/20 23 8:16 AM CDT documented as of this encounter Care Teams Dehairer Relationship Specialty [place] [address] [address] [facility] [address] [place] [address] PCP - General Internal Medicine 07/06/22 documented as of this encounter
--- OUTSIDE RECORDS SUMMARY | 2025-07-29 09:14 | XMS_ITS | Encounter Summary ---
Author Organization [facility] Address [address] [place] [address] Care Team Providers Care Regulator Inspector Name Role Phone Hudson Rivera MD Primary Care Provider Reason for Visit * Reason Comments Patient Communication Encounter Details Date Type Department Care Team (Late st Contact Info) Description 07/29/2025 Telephone [facility] Internal Medicine [place] Mann [address] [facility] [address] [place] [address] [place] [address] [facility] [address] [place] [address] Patient Communication Social History Tobacco Use [...] encounter Miscellaneous Notes * Telephone Encounter - Navin Dana Freeman LPN - 07/29/2025 8:19 AM CDT Severe back pain, legs are numb and feel as if they are staticky. She stated she needs help to get up and walk around now. Advised patient that best and fastest route of care for her at this point would be the ER. As she is having changes in ambulation and stated her legs feel numb. She will have her take her to the ER.. Advised [facility] but she stated she lives in [place] and will go to a hospital nearest to her. * Telephone Encounter - Elaine Vidal PCA - 07/29/2025 8:18 AM CDT Copied from [facility] #[id number]. Topic: CPA Information Request >> Jul 29, 2025 8:16 AM Elaine Freeman wrote: Caller is returning phone call from clinic. Caller Name: Rosaura Kumar Patient/Caregiver Callback Number: Telephone Information: Patient Has Additional Questions Are the credentials of the caregiver who talked to the patient wire rigger? No Call Notes: Patient/Caller requires a call back to discuss patient states she is having severe backpain, which is hard to sit, walk or use the bathroom, patient has an appointment today 07/29/25, its a video visit, she wanted to know if there is anything she needs to do before her appointment due to the severe back pain, please advise. documented in this encounter Plan of Treatment Upcoming Encounters Date Type Department Care Team (Late st Contact Info) Description 07/29/2025 12:00 PM CDT Video Visit [facility] Internal Medicine [place] Mann [address] [place] [address] Jenise Martin FNP [address] [place] [address] documented as of this encounter Visit Diagnoses Not on filedocumented in this encounter Additional Health Concerns Assessment Noted Time PHQ-9 Depression Total Score: 3 04/30/20 23 8:16 AM CDT documented as of this encounter Care Teams Regulator Inspector Relationship Specialty [place] [address] [place] [address] PCP - General Internal Medicine 07/06/22 documented as of this encounter
--- OUTSIDE RECORDS SUMMARY | 2025-07-29 09:14 | XMS_ITS | Encounter Summary ---
Author Organization [facility] Address [address] [place] [address] Care Team Providers Care Pipe Coremaker Name Role Phone Hudson Rivera MD Primary Care Provider [phone] Reason for Visit * Reason Onset Date Comments After Hours Ticket, Patient Needs Outreach 07/29 Encounter Details Date Type Department Care Team ([facility] Contact Info) Description 07/29/[address] [facility] Internal Medicine [place] Johnathan [address] [facility] [address] [place] [address] Michelle Snyder RN Social History Tobacco Use Types Packs/Day Years [...] on file documented as of this encounter Plan of Treatment Upcoming Encounters Date Type Department Care Team (Late Contact Info) Description 07/29/2025 12:00 PM CDT Video Visit [facility] Internal Medicine [place] [address] [facility] [address] [place] [address] Jenise Martin FNP [address] [facility] [address] [place] [address] documented as of this encounter Visit Diagnoses Not on filedocumented in this encounter Additional Health Concerns Assessment Noted Time PHQ-9 Depression Total Score: 3 04/30/20 23 8:16 AM CDT documented as of this encounter Care Teams Pipe Coremaker Relationship Specialty [place] [address] [facility] [address] [place] [address] PCP - General Internal Medicine 07/06/22 documented as of this encounter
--- OUTSIDE RECORDS SUMMARY | 2025-07-29 09:14 | XMS_ITS | Encounter Summary ---
Author Organization [facility] Address [address] [place] [address] Care Team Providers Care Head Strength And Conditioning Coach Name Role Phone Hudson Rivera MD Primary Care Provider [phone] Reason for Visit * Reason Comments Medication Authorization Encounter Details Date Type Department Care Team (Late st Contact Info) Description 03/22/2025 Telephone [facility] Internal Medicine [place] Mann [address] [facility] [address] [place] [address] [place] [address] [facility] [address] [place] [address] Medication Authorization Social History Tobacco Use Types Packs/Day Years [...] encounter Miscellaneous Notes * Telephone Encounter - Shannan Mayes - 03/22/2025 11:19 AM CDT Copied from [facility] #[id number]. Topic: CPA Information Request - Authorization >> Mar 22, 2025 11:18 AM Shannan Baxter wrote: Caller is calling to check the status of an authorization for a medication. Caller Name: Rosaura Kumar Callback Number: Telephone Information: Call Notes: requesting for a PA to be submitted for [employer] Who is calling? Patient or Pharmacy If callers offers any of the following Prescription Plan information add it below (not required): Medication Name: Rx Insurance Name: Patient Member ID: RX Bin#: [id number] PCN #: RX Group #: What is the status of the prior authorization? No Status Listed documented in this encounter Plan of Treatment Upcoming Encounters Date Type Department Care Team (Late st Contact Info) Description 07/29/2025 12:00 PM CDT Video Visit [facility] Internal Medicine [place] Mann [address] [place] [address] Jenise Martin FNP [address] [place] [address] documented as of this encounter Visit Diagnoses Not on filedocumented in this encounter Additional Health Concerns Assessment Noted Time PHQ-9 Depression Total Score: 3 04/30/20 23 8:16 AM CDT documented as of this encounter Care Teams Head Strength And Conditioning Coach Relationship Specialty [place] [address] [place] [address] PCP - General Internal Medicine 07/06/22 documented as of this encounter
--- OUTSIDE RECORDS SUMMARY | 2025-07-29 09:14 | XMS_ITS | Encounter Summary ---
Author Organization [facility] Address [address] [place] [address] Care Team Providers Care Tabulating Supervisor Name Role Phone Hudson Rivera MD Primary Care Provider Encounter Details Date Type Department Care Team (Late Contact Info) Description 07/28/2025 External Device Data [facility] ABSTRACTION Provider, Abstract NO ADDRESS ON FILE Social History Tobacco Use Types Packs/Day Years [...] Description 07/29/2025 12:00 PM CDT Video Visit [facility] Internal Medicine [place] Mann [address] [place] [address] Jenise Martin FNP [address] [facility] [address] [place] [address] documented as of this encounter Visit Diagnoses Not on filedocumented in this encounter Additional Health Concerns Assessment Noted Time PHQ-9 Depression Total Score: 3 04/30/20 23 8:16 AM CDT documented as of this encounter Care Teams Tabulating Supervisor Relationship Specialty [place] [address] [facility] [address] [place] [phone] PCP - General Internal Medicine 07/06/22 documented as of this encounter
--- OUTSIDE RECORDS SUMMARY | 2025-07-29 09:14 | XMS_ITS | Patient Health Record ---
Author Organization [facility] Address [address] [facility] [address] [place], [place] [address] Care Team Providers Care Hardwood Finisher Name Role Phone OTTO HARKINS MD Primary Care Provider Wandaino Gay Head Unavailable [phone] ALLERGIES No Known Allergies REASON FOR REFERRAL No Information MEDICATIONS Medication SIG (Take, Route, Fr equency, Duration) Notes Start Date End Date Status Imuran 50 mg 100 mg in AM, 50 mg in PM orally bid for 90 days Active PROzac 20 mg 1 cap(s) orally once a day for 30 day(s) Active Vitamin B12 Active Vitamin D3 Active Plaquenil 200 mg 1 tab(s) orally once a day for 90 days Active Calcium /Vitamin D A ctive Fiber Con Active norethindrone 0.35 mg 1 tab(s) orally on ce a day for 28 day(s) Active LaMICtal 100 mg 1 tab(s) orally 2 ti mes a day for 30 day(s) Active Prednisone (2day) 5mg Take 6 tablets for 2 days then decrease by one tablet every two days until gone oral qd 09/21/2021 Acti ve PROBLEMS Problem Type ICD Code Onset Dates Problem Status W/U Status Risk SNOMED Code Notes Problem Hx of systemic lupus erythematosus (SLE) (M32.9) Active confirmed 004696777 Problem PTSD (post-traumatic stress disorder) (F43.10) Active confirmed 29058670 Problem Chronic fatigue, unspecified (R53.82) Active confirmed Chronic fatigue syndrome (disorder) (18156242) Problem Dizziness (R42) Active confirmed Dizzin ess (743044717) Problem Weakness (R53.1) Active confirmed Weakn ess (02477402) Problem Arthralgia of multiple sites (M25.50) Active confirmed Joint pain (78710839) Problem Lupus (systemic lupus erythematosus) (M32.9) Active confirmed Systemic lupus erythematosus (31018958) PLAN OF TREATMENT Pending Test Test Name Order Date Complement C4, Serum 11/08/2021 CBC With Differential/Platelet 2 Sed Rate - Westergren 11/08/2021 Complement C3, Serum 11/08/2021 C-Reactive Protein, Quant 11/08/2021 Comp. Metabolic Panel (14) 11/08/2021 Lab slip given 02/03/2021 Lab slip given 05/12/2021 Urinalysis, Complete 11/08/2021 Future Test Test Name Order Date Histone Antibodies (Antihistone Ab) 08/30 Comp. Metabolic Panel (14) 09/15/2020 URINALYSIS, COMPLETE 09/15/2020 Autoimmune Hepatitis Panel 09/15/2020 Chromatin (Nucleosomal) Ab 09/15/2020 Lab slip given 09/15/2020 CBC (INCLUDES DIFF/PLT) 09/15/2020 Myositis specific-11 Ab(DO NOT USE) 08/30 Scleroderma 12 AB panel,transfer serum,f ridge 09/15/2020 Insurance Providers Payer Name Payer Address Payer Phone Subscriber Number Group Number Insured Name Patient Relationship to Insured Coverage Start Date Coverage End Date [employer] [facility] [address] [place] [address] [id number] JENNY DANIELSON Natural Child - Insured has Financial Responsibility 2 MEDICAL (GENERAL) HISTORY Medical History History ICD Code SLE Panic attacks / PTSD Migraines Dysmenorrhea, Exercise induced asthma bruises easily migraine headache vision - flashes depression tension headaches dizziness anxiety chest pain asthma poor appetite bowel changes diarrhea vomiting weight loss bleeding between periods varicose veins Nausea stomach pain/cramps extreme menstrual pain Surgical History Surgery Date(Month/Year)
--- OUTSIDE RECORDS SUMMARY | 2025-07-29 09:14 | XMS_ITS | Clinical Summary ---
Author Organization [facility] Address [address] [place] [address] Care Team Providers Care Electric Motor Control Assembler Name Role Phone Hudson Rivera MD Primary Care Provider Allergies No known active allergies Medications lamoTRIgine 100 mg tablet Take 100 mg by mouth daily. Active CALCIUM CARBONATE-VITAM IN D3 ORAL Take by mouth. Acti ve CYANOCOBALAMIN, VITAMIN B-12, ORAL Take by mouth. Activ e Vraylar 3 mg Capsule capsule Take 6 mg by mouth daily. 3 Active ibuprofen (MOTRIN) 800 mg tabletIndicatio ns:Acute bilateral low back pain without sciatica Take 1 Tablet (800 mg) by mouth every 6 hours as needed for Pain, Mild or Pain, Moderate. 30 Tablet 4 Active desvenlafaxine succinate (Pristiq) 25 mg Tablet Sustained Release 24HR Extended Release 24 hour tablet Take 50 mg by mouth daily with breakfast. Active busPIRone (BUSPAR) 15 mg Tablet Take 15 mg by mouth 2 times daily. 4 Active norethindrone, Contraceptive, 0.35 mg Tablet Take 1 Tablet by mouth daily. Active SEMAGLUTIDE SUBCUT Inject 40 Units by subcutaneous injection every 7 days. Active pantoprazole (PROTONIX) 40 mg Tablet, Delayed Release (E.C.)Indicatio ns:Chronic nausea TAKE ONE TABLET BY MOUTH EVERY DAY BEFORE SUPPER 90 Tablet 2 4 Active famotidine (PEPCID) 20 mg tablet TAKE ONE TABLET BY MOUTH AT BEDTIME 30 Tablet 5 Active lithium carbonate 300 mg tablet Take 1 Tablet by mouth 2 times daily. 5 Active lithium carbonate (ESKALITH IR) 300 mg Capsule 300 mg. 5 Active lithium carbonate (ESKALITH IR) 150 mg Capsule 300 mg. 5 Active hydroxychloroqu ine (PLAQUENIL,SOVU NA) 200 mg tabletIndicatio ns:Systemic lupus erythematosus, unspecified SLE type, unspecified organ involvement status (CMS/HCC) Take 1 Tablet (200 mg) by mouth 2 times daily. 200 Tablet 3 5 Active Active Problems Problem Noted Date Diagnosed Date Bipolar 1 disorder 08/20/2023 Vitamin D deficiency 08/20/2023 Sleep apnea 08/02/2023 Systemic lupus erythematosus 07/08/2022 PTSD (post-traumatic stress disorder) 07/08/2022 Encounters Date Type Department Care Team Description 07/29/2025 12:00 PM CDT Video Visit [facility] [email or web address] [place] [address] Jenise Martin FNP 07/29/2025 Telephone [facility] [email or web address] [place] [address] Hudson Rivera MD Patient Communication 07/29/2025 Nurse Triage [facility] [email or web address] [place] [address] Michelle Snyder RN 07/28/2025 External Device Data STL ABSTRACTION Provider, Abstract 07/27/2025 External Device Data STL ABSTRACTION Provider, Abstract 06/15/2025 External Device Data STL ABSTRACTION Provider, Abstract 06/01/2025 External Device Data STL ABSTRACTION Provider, Abstract 05/18/2025 External Device Data STL ABSTRACTION Provider, Abstract 05/11/2025 External Device Data STL ABSTRACTION Provider, Abstract from Last 3 Months Immunizations Immunization Administration Dates Next Due (ADACEL/BOOSTRIX)(10 YR UP) TDAP VACCINE, 0.5ML, IM 04/30/2013,12/21/2011 (GARDASIL 9)(9-45 YRS) HUMAN PAPILLOMAVIRUS VACCINE, TYPES 6, 11, 16, 18, 31, 33, 45, 52, 58, NONAVALENT (9VHPV), 2 OR 3 DOSE, IM 03/14/2017 (INFANRIX)(6 WKS-6 YRS) DIPT HERIA, TETANUS TOXOIDS, AND ACCELLULAR PERTUSSIS VACCINE (DTAP), 0.5 ML IM 01/22/2004,07/26/2000,1999,03/21 (IPOL)(6 WKS AND UP) POLIOVI GIOVANI VACCINE, INACTIVATED (IPV), 3 DOSE, SUBCUT OR IM 01/22/2004,07/26/2000,1999 (M-M-R II/PRIORIX)(12 MO UP) MEASLES, MUMPS AND RUBELLA VIRUS VACCINE, 0.5 ML IM/SUBCUT 01/22/2004,07/26/2000 (MENACTRA)(9 MO-55 YR) MENIN GOCOCCAL POLYSACCHARIDE A, C, Y AND W-135 DIPTHERIA TOXOID CONJUGATE VACCINE, (PF), 0.5ML, IM 08/02/2016 (Moderna Bivalent)(6 Mos Up) COVID-19 Vaccine - Emergency Use Authorization, MRNA(Pf) 50 Mcg/0.5 Ml Im Susp 08/29/2022 (PREVNAR 20)(6 WKS UP) PNEUM OCOCCAL CONJUGATE VACCINE 20-VALENT (PCV20), POLYSACCHARIDE API486 CONJUGATE, ADJUVANT 0.5 ML (PF) IM 08/20/2023 (Pfizer Bivalent)(12 Yr Up) COVID-19 Vaccine - Emergency Use Authorization, MRNA, Lnp-S(Pf) 30 Mcg/0.3 Ml Susp 08/29/2022 (RECOMBIVAX HB/ENGERIX-B)(0- 19 YRS) HEPATITIS B VACCINE 5 MCG/0.5 ML OR 10 MCG/0.5 ML PED OR ADOL 3 DOSE (PF), IM 1999 DTP Hib Combined Vaccine IM 1999 HIB, Unspecified Formulation 1999 Hepatitis B and Haemophilus Influenzae Type B Vaccine (Hib-HepB)IM 07/26/2000,1999 INFLUENZA VACCINE QUADRIVALE NT 6 MOS UP CELL DERIVED PF IM 07/23/2023,08/29/2022 Influenza Seasonal Unspecifi ed Formulation PF IM 06/22/2024 Poliovirus Vaccine Live Oral 1999 Family History Medical History Relation Name Comments Bipolar Disorder Father Heart Disease Maternal Grandfather Hudson Lung Cancer Maternal Grandfather Hudson Other Mother PTSD Rheumatoid Arthritis Mother Obsessive Compulsive Disorder Sister 1 ADHD Sister 5 Relation Name Status Comments Brother Alive Father Alive Maternal Grandfather Hudson Mother Alive Sister 1 Alive Sister 2 Alive Sister 3 Alive Sister 4 Alive Sister 5 Alive Social History Tobacco Use Types Packs/Day Years Used Date Smoking Tobacco: Never Passive Smoke Exposure: Never Smokeless Tobacco: Never Tobacco Cessation:Counseling Given: Not Answered Alcohol Use Standard Drinks/Week Comments Not Currently [...] on file Sexual Orientation Not on file Last Filed Vital Signs Vital Sign Reading Time Taken Comments Blood Pressure 106/74 08/24/2024 8:38 AM PACKAGE LIFT OPERATOR Pulse 88 08/24/2024 8:38 AM PACKAGE LIFT OPERATOR Temperature 36.3 C (97.3 F) 08/24/2024 8:38 AM PACKAGE LIFT OPERATOR Respiratory Rate 18 12/09/2023 1:50 PM CDT Oxygen Saturation 97% 08/24/2024 8:38 AM PACKAGE LIFT OPERATOR Inhaled Oxygen Concentration - - Weight 83.9 kg (185 lb) 03/26/2025 3:44 PM CDT Height 167.6 cm (5' 6) 03/26/2025 3:44 PM CDT Body Mass Index 29.86 03/26/2025 3:44 PM CDT Plan of Treatment Upcoming Encounters Date Type Department Care Team (Late st Contact Info) Description 07/29/2025 12:00 PM CDT Video Visit [facility] [place] [address] [place] [address] Jenise Martin FNP [address] [place] [address] Health Maintenance Due Date Last Done Comments HPV VACCINES (2 - 3-dose series) 04/11/2017 03/14/2017 HPV/Cotest (21-29) 01/14/2020 DTAP/TDAP/TD VACCINES (8 - Td or Tdap) 04/30/2023 04/30/2013, 12/21/2011, 01/22/2004, Additional history exists Preventative Visit- Commercial 09/30/2024 08/24/2024, 08/20/2023, 04/30/2023, Additional history exists INFLUENZA VACCINE (#1) 2025 , 07/23/2023, 08/29/2022 COVID-19 Vaccine (4 - Mixed Product risk season) 2025 06/22/2024, 07/23/2023, 08/29/2022, Additional history exists CERVICAL CANCER SCREENING 08/24/2025 Po stponed from 01/14/2020 PAP SMEAR 08/24/2025 Postponed from 01/14/2020 (Other) HEPATITIS B VACCINES Completed 07/26/2000, 1999, 1999 Insurance [facility] BLUE PREFERRED Advance Directives For more information, please contact: [phone] * Full Code (Latest Code Status on File) Date Activated Date Inactivated Comments 12/09/2023 12:39 PM 12/09/2023 4:18 PM Care Teams Electric Motor Control Assembler Relationship Specialty [place] [address] [facility] [address] [place] [phone] PCP - General Internal Medicine 07/06/22
--- OUTSIDE RECORDS SUMMARY | 2025-07-29 09:14 | XMS_ITS | Encounter Summary ---
Author Organization [facility] Address [address] [place] [address] Care Team Providers Care Guide Plant Name Role Phone Hudson Rivera MD Primary Care Provider [phone] Reason for Visit * Reason Onset Date Comments YELLOW FLAG 08/28/2023 RED FLAG 08/28/2023 Encounter Details Date Type Department Care Team (Late st Contact Info) Description 08/28/2023 Telephone [facility] Internal Medicine [place] [address] [facility] [address] [place] [address] [place] [address] [facility] [address] [place] [address] YELLOW FLAG; RED FLAG Social History Tobacco Use Types Packs/Day Years Used Date Smoking Tobacco: Never Smokeless Tobacco: Never Alcohol Use Standard Drinks/Week Comments Not Currently 0 (1 standard drink = 0.6 oz pur e alcohol) Comments No Sex and Gender Information Value Date Recorded Sex Assigned at Not on file Legal Sex Female 1:50 PM CDT Gender Identity Not on file Sexual Orientation Not on file documented as of this encounter Miscellaneous Notes * Telephone Encounter - Gisselle Felix - 08/28/2023 9:47 AM CST Pt does not have inhauler, Congestion with Difficulty breathing, Should we make appt? Please advise. TH SCIENCE INSTRUCTOR * Telephone Encounter - Sushma Mann - 08/28/2023 9:42 AM CST Upper Respiratory Symptoms (Congestion / Cough) Any of the following symptoms: Difficulty breathing? Yes The caller has been advised they will be transferred to a clinical coworker as they have presented information that may require further consultation or possible emergency action. Call back number: [phone] (home) TH SCIENCE INSTRUCTOR documented in this encounter Plan of Treatment Upcoming Encounters Date Type Department Care Team (Late st Contact Info) Description 07/29/2025 12:00 PM CDT Video Visit [facility] Internal Medicine [place] [address] [place] [address] Jenise Martin FNP [address] [place] [address] documented as of this encounter Visit Diagnoses Not on filedocumented in this encounter Additional Health Concerns Assessment Noted Time PHQ-9 Depression Total Score: 3 04/30/20 23 8:16 AM CDT documented as of this encounter Care Teams Guide Plant Relationship Specialty [place] [address] [address] [place] [address] PCP - General Internal Medicine 07/06/22 documented as of this encounter
--- OUTSIDE RECORDS SUMMARY | 2025-07-29 09:14 | XMS_ITS | Encounter Summary ---
Author Organization [facility] Address [address] [place] [address] Care Team Providers Care Oral Communication Instructor Name Role Phone Hudson Rivera MD Primary Care Provider Encounter Details Date Type Department Care Team (Late Contact Info) Description 07/27/2025 External Device Data STL ABSTRACTION Provider, [...] Description 07/29/2025 12:00 PM CDT Video Visit [facility] Internal Medicine [place] [address] [facility] [address] [place] [address] Jenise Martin FNP [address] [facility] [address] [place] [address] documented as of this encounter Visit Diagnoses Not on filedocumented in this encounter Additional Health Concerns Assessment Noted Time PHQ-9 Depression Total Score: 3 04/30/20 23 8:16 AM CDT documented as of this encounter Care Teams Oral Communication Instructor Relationship Specialty [place] [address] [facility] [address] [place] [id number] PCP - General Internal Medicine 07/06/22 documented as of this encounter
--- OUTSIDE RECORDS SUMMARY | 2025-07-29 09:14 | XMS_ITS | Encounter Summary ---
Author Organization [facility] Address [address] [place] [address] Care Team Providers Care Pilot Submersible Name Role Phone Hudson Rivera MD Primary Care Provider Reason for Visit * Reason Comments Clinical Consult Before Scheduling Encounter Details Date Type Department Care Team (Late st Contact Info) Description 03/11/2024 Telephone [facility] Internal Medicine [place] [address] [facility] [address] [place] [address] [place] [address] [address] [address] [place] [address] Clinical Consult Before Scheduling Social History Tobacco Use Types Packs/Day Years [...] Encounter - Navin Dana Freeman LPN - 03/11/2024 1:50 PM CDT Patient went to urgent care today [facility] in [place]. No labs were completed. Recently dx withgastritis. Gave her Zofran. Feeling tired and fatigued. No new medications No changes in physical activity NAUSEA VOMITING The adult patient complains of nausea and emesis When did symptoms start: nausea for 2 months. How often is patient vomitin days 12 times today and also dry heaving. Is able to drink liquids, but not eating. Having Bm's (small sized) No rash. Is the patient : no. Fever: yes; 100.00 Abdominal pain: moderate,upper abd 6/10 pain Diarrhea: none. Lightheaded: mild. After emesis What has the patient tried for symptoms: Zofran . Did it help: yes. Any recent sick contacts: none known. If the patient is having new onset of severe nausea/vomiting with lightheadedness or unable to stand, or vomiting blood, or severe abdominal pain, contact provider SHANNAN to see if patient should go toER. [facility] preferable when needed to help to coordinate care if doesn't delay care. If the patient can't be seen by a provider and chooses urgent care, recommend: [facility] are preferable when needed to help to coordinate care. Click for list of [facility]: [email or web address] Designed by [employer] committee 2019 * Telephone Encounter - Riana Ernst - 03/11/2024 12:44 PM CDT Copied from [facility] #[id number]. Topic: Symptomatic Care >> Mar 11, 2024 12:42 PM Riana Cruz wrote: Caller has new symptoms and is seeking care. Age Range/Symptom: Adult: 18+ - Headache or Migraine Is your headache sudden onset and severe? Yes Caller Name: Rosaura Kumar Callback Number: [phone] (home) Call Notes: Rosaura Kumar called because she has a fever and been vomiting documented in this encounter Plan of Treatment Upcoming Encounters Date Type Department Care Team (Late st Contact Info) Description 07/29/2025 12:00 PM CDT Video Visit [facility] Internal Medicine [place] [address] [facility] [address] [place] [address] Jenise Martin FNP [address] [facility] [address] [place] [phone] documented as of this encounter Visit Diagnoses Not on filedocumented in this encounter Additional Health Concerns Assessment Noted Time PHQ-9 Depression Total Score: 3 04/30/20 23 8:16 AM CDT documented as of this encounter Care Teams Pilot Submersible Relationship Specialty [place] [address] [facility] [address] [place] [phone] PCP - General Internal Medicine 07/06/22 documented as of this encounter
--- OUTSIDE RECORDS SUMMARY | 2025-07-29 09:14 | XMS_ITS | Clinical Summary ---
Author Organization [facility] Address [address] [place] [address] Care Team Providers Care Optical Laboratory Technician Name Role Phone Hudson Rivera MD Primary Care Provider Source Comments [facility]non-owned Affiliates and Associated Physician Practices is amultiple site organization consisting of ambulatory clinics and hospital sitesin [place], [place], [place] and [place]. This disclosure is being madepursuant to the Care Everywhere program and may not contain all information available regarding this patient. Last updated 18.[facility] Allergies No known active allergies Medications * This document contains information received from the source organization and may not represent a complete record from that organization. * Be aware that medications may not be up to date on this document. Alwaysverify current medications with the patient. cetirizine (ZyrTEC) 5 MG tablet Take 2 (two) tablets by mouth once daily Active cariprazine (Vraylar) 4.5 MG capsuleIndication s:Manic Phase of Bipolar Mood Disorder,Mixed Bipolar Affective Disorder Take 1 (one) capsule by mouth once daily Reasons: MIXED BIPOLAR AFFECTIVE DISORDER, Manic Phase of Manic-Depression 30 capsule 10/22/19 24 Active Cholecalciferol (DIALYVITE VITAMIN D 5000 PO) Take 1 tablet by mouth once daily Active pantoprazole EC (Protonix) 40 MG tablet Take 1 (one) tablet by mouth once daily 03/14/20 24 Active famotidine (Pepcid) 20 MG tablet Take 1 (one) tablet by mouth at bedtime 04/13/20 24 Active hydroxychloroquin e (Plaquenil) 200 MG tabletIndications :History of systemic lupus erythematosus (HCC) TAKE ONE TABLET BY MOUTH 2 TIMES A DAY 180 tablet 3 06/09/20 24 Active semaglutide 1 MG/ML vial Inject 40 Units subcutaneously every 7 days Active lamoTRIgine (LaMICtal) 200 MG tablet Take 1 (one) tablet by mouth once daily 08/26/20 24 Active desvenlafaxine succinate ER 24hr (Pristiq) 50 MG tablet Take 1 (one) tablet by mouth once daily 08/26/20 24 Active propranolol (Inderal) 10 MG tabletIndications :Situational Anxiety Take 1 (one) tablet to 2 (two) tablets by mouth 2 times daily as needed (Anxiety) Reasons: Anxiety Related to Current Life Problems 60 tablet 09/02/20 24 Active busPIRone (Buspar) 15 MG tabletIndications :Anxiety Disorder Take 1 (one) tablet by mouth 3 times daily for 30 days Reasons: Anxiety Disorder 90 tablet 09/12/20 24 Active hydrOXYzine HCl (Atarax) 25 MG tabletIndications :Anxiety Take 1 (one) tablet by mouth 4 times daily as needed Reasons: Feeling Anxious 25 tablet 09/12/20 24 Active Active Problems Problem Noted Date Diagnosed Date Chronic fatigue 10/25/2023 Inadequate sleep hygiene 10/25/2023 Obesity (BMI 30-39.9) 10/25/2023 Restless sleeper 10/25/2023 Nasal congestion 10/25/2023 Night sweats 10/25/2023 Sleep-related hallucinations 10/25/2023 Sleep talking 10/25/2023 Nightmares 10/25/2023 Sleep drunkenness 10/25/2023 Sleep related bruxism 10/25/2023 Chest pain, atypical 10/25/2023 Nausea and vomiting 10/25/2023 SOB (shortness of breath) on exertion 10/25/2023 Poor concentration 10/25/2023 Numbness and tingling 10/25/2023 Pure hypercholesterolemia 10/25/20232022 Bipolar 1 disorder 08/20/2023 10/17/2023 BIRGIT (obstructive sleep apnea) 08/02/2023 Overview (03/30/2024): HOME SLEEP APNEA TEST INTERPRETATION (12/12/2023) DIAGNOSTIC STUDY During this diagnostic study, the patient was monitored for 458 minutes. The patient's overall respiratory event index (LIV) was increased at 8.8 per hour. The supine LIV was 13.5 per hour while the non-supine LIV was 6.8 per hour. The minimum oxygen saturation was within normal limits at 90%. The time spent with oxygen saturation less than 90% was 0 min. IMPRESSION: Mild obstructive sleep apnea Vitamin D deficiency 12/07/2022 10/24/2023 Overview (10/24/2023): Last Assessment & Plan: Last value 28 on 11/26/2022. Increased per PCP. Long-term use of immunosuppressant medication 10/24/2023 Overview (10/24/2023): Last Assessment & Plan: Patient is on immunosuppressive medication requiring intensive lab monitoring for medication safety. Labs 11/26/2022 were reviewed in [facility] system. CMP normal. CBC normal. UA with negative blood/protein. No evidence of medication toxicity. Weight gain 08/09/2022 10/24/2023 Overview (10/24/2023): Last Assessment & Plan: Checking thyroid labs with history of weight gain. PTSD (post-traumatic stress disorder) 07/08/2022 10/17/2023 Systemic lupus erythematosus 07/08/2022 Overview (10/24/2023): Last Assessment & Plan: Chronic, stable. Currently on hydroxychloroquine, azathioprine 150 mg daily. Main symptoms at this time include joint pains with inflammation. I recommend continuing hydroxychloroquine, Azathioprine same dose for now. Immunizations Immunization Administration Dates Next Due [employer] BIVALENT 12Y+ 30mcg/0.3ML DTP HIB, HISTORIC VACCINE 1999 DTaP VACCINE IM (6wk-6yrs) 01/22/2004,,1999,03/21 HEP B VACCINE, PED/ADOL 1999 HIB Hep B 07/26/2000,1999 HIB VACCINE 1999 Human Papilloma Virus Nineva lent Vaccine 03/14/2017 INFLUENZA VACCINE, CELL CULT URE, QUADR. (FLUCELVAX QUADRIVALENT; 6MO+) (CCIIV4) 07/23/2023,08/29/2022 MENINGOCOCCAL ACWY (MCV4P) VAC IM 08/02/2016 MMR 01/22/2004,07/26/2000 PNEUMOCOCCAL PCV20 CONJ VAC IM 08/20/2023 POLIO IPV 01/22/2004,07/26/2000,1999 POLIO OPV 1999 TDAP (7yrs+) 04/30/2013,12/21/2011 Family History Medical History Relation Name Comments Anxiety Disorder Brother Depression Brother Anxiety Disorder Father Bipolar Disorder Father Depression Father Heart Failure Maternal Grandfather Anxiety Disorder Mother Other Mother fibromyalgia Sleep Disorder - Sleep apnea Mother Thyroid Disease Mother Anxiety Disorder Sister 1 Bipolar Disorder Sister 1 Depression Sister 1 Anxiety Disorder Sister 2 Depression Sister 2 Anxiety Disorder Sister 3 Bipolar Disorder Sister 3 Depression Sister 3 Anxiety Disorder Sister 4 Depression Sister 4 Anxiety Disorder Sister 5 Depression Sister 5 Completed Suicide Neg Hx Relation Name Status Comments Brother Alive Father Alive Maternal Grandfather Mother Alive Sister 1 Alive Sister 2 Alive Sister 3 Alive Sister 4 Alive Sister 5 Alive Social History Tobacco Use Types Packs/Day Years Used Date Smoking Tobacco: Never Smokeless Tobacco: Never Tobacco Cessation:Counseling Given: Not Answered Alcohol Use Standard Drinks/Week Comments Not Currently 0 (1 standard drink = 0.6 oz pur e alcohol) PHQ-2 Answer Date Recorded Patient Health Questionnaire-2 Score 3 09/08/2024 Education Answer Date Recorded What is the highest level of school you have completed or the highest degree you have received? 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 Not on file Not on file Not on mariah e Last Filed Vital Signs Vital Sign Reading Time Taken Comments Blood Pressure 114/77 09/12/2024 10:59 AM SCREW MACHINE REPAIRER Pulse 97 09/12/2024 10:59 AM SCREW MACHINE REPAIRER Temperature 36.4 C (97.5 F) 09/12/2024 10:59 AM SCREW MACHINE REPAIRER Respiratory Rate - - Oxygen Saturation 98% 09/08/2024 11:25 AM SCREW MACHINE REPAIRER Inhaled Oxygen Concentration - - Weight 91.2 kg (201 lb) 09/12/2024 10:59 AM SCREW MACHINE REPAIRER Height 165.1 cm (5' 5) 09/12/2024 10:59 AM SCREW MACHINE REPAIRER Body Mass Index 33.45 09/12/2024 10:59 AM SCREW MACHINE REPAIRER Plan of Treatment Health Maintenance Due Date Last Done Comments HIV SCREENING 2014 HPV VACCINE (2 - 3-dose series) 04/11/2017 03/14/2017 PAP SMEAR 01/14/2020 DTAP/TDAP/TD VACCINES (8 - Td or Tdap) 04/30/2023 04/30/2013, 12/21/2011, 01/22/2004, Additional history exists COVID-19 VACCINE ( season) 2025 08/29/2022, 08/29/2022 INFLUENZA VACCINE (#1) 2025 , 07/23/2023, 08/29/2022 ZOSTER VACCINE (1 of 2) 2049 HEPATITIS B VACCINE Completed 07/26/2000, 1999, 1999 HIB VACCINE Completed 07/26/2000, 07/01, 1999, Additional history exists MENINGOCOCCAL GROUPS A/C/Y/W VACCINE Completed 08/02/2016 PNEUMOCOCCAL VACCINE Aged Out 08/20/2023 No long er eligible based on patient's age to complete this topic HEPATITIS C SCREENING Completed 10/17/2023 MENINGOCOCCAL (Group B) VACCINE SHARED DECISION-MAKING Aged Out No longer eligible based on patient's age to complete this topic Procedures Procedure Name Priority Date/Time Associated Diagnosis Comments HEPATITIS C AB SCREEN RFLX NAAT QUANT Routine 10/17/2023 12:40 PM SCREW MACHINE REPAIRER Need for hepatitis C screening test from Last 3 Months or Most Recently Relevant to Health Maintenance Results * HEPATITIS C AB SCREEN RFLX NAAT QUANT (10/17/2023 12:40 PM SCREW MACHINE REPAIRER) Hepatitis C Antibody Non-react lm Non-reac tive 10/17/2023 1:50 PM SCREW MACHINE REPAIRER [facility] Comment:Hepatitis C Antibody screen indicates no serologic evidence of past or current infection with Hepatitis C Virus. Patients with unexplained liver disease who are immunocompromised or suspected of having acute Hepatitis C infection may benefit from Nucleic Acid Test (NOMI) for Hepatitis C Viral RNA to confirm Hepatitis C status. Blood BLOOD SPECIMEN / Unknown Lab Venipuncture / Unknown 10/17/2023 12:40 PM SCREW MACHINE REPAIRER 10/17/2023 12:53 PM SCREW MACHINE REPAIRER Evin Reynolds MD LAB - CHEMISTRY ORDERABLES [facility] Result [facility] [address] [place] [id number], [facility] [phone] from Last 3 Months or Most Recently Relevant to Health Maintenance Insurance ANTHEM ANTHEM Care Teams Optical Laboratory Technician Relationship Specialty [place] [address] [facility] [address] [place] [phone] PCP - General Internal Medicine 08/02/23
--- NOTE | 2025-07-29 09:24 | ED.BACK ---
HPI - Back Pain/Injury General Chief Complaint: Back Pain/Injury Stated Complaint: sent by PCP for back pain Time Seen by Provider: 07/29/25 08:59 Source: patient Mode of arrival: ambulatory Limitations: no limitations History of Present Illness HPI Narrative: Rosaura is a 25-year-old female patient presenting to the ER today with complaints of low back pain x2 weeks. States that the back pain worsened yesterday. Pain is sharp in the low back and she has numbness and tingling in her lower extremities and feels weak. Rates her pain a 9/10 currently. Has had a history of a pinched nerve and arthritis in her back. No loss of bowel or bladder. Denies any saddle anesthesia. Was having difficulty passing stool this morning due to the pain. Last bowel movement was yesterday. No blood in her stool. Denies any urinary symptoms. Last menstrual period was 1 week ago. Has taken ibuprofen this morning for her symptoms with minimal relief. Denies any recent falls. Related Data Home Medications ?Medication ?Instructions ?Recorded ?Confirmed ?Last Taken ?Type hydroxychloroquine 200 mg tablet 200 mg PO DAILY 07/27/20 07/27/25 08/03/20 History (Plaquenil) cetirizine 10 mg capsule (Zyrtec) 10 mg PO DAILY PRN 01/03/22 07/27/25 Unknown History lamotrigine 100 mg tablet 100 mg PO DAILY 01/03/22 07/27/25 Unknown History (Lamictal) buspirone 5 mg tablet 5 mg PO TID 06/07/25 07/27/25 Unknown History cariprazine 4.5 mg capsule 4.5 mg PO DAILY 06/07/25 07/27/25 Unknown History (Vraylar) cholecalciferol (vitamin D3) 125 125 mcg PO DAILY 06/07/25 07/27/25 Unknown History mcg (5,000 unit) capsule lithium carbonate 300 mg capsule 300 mg PO QHS 06/07/25 07/27/25 Unknown History lithium carbonate 450 mg 450 mg PO QHS 06/07/25 07/27/25 Unknown History tablet,extended release Allergies Allergy/AdvReac Type Severity Reaction Status Date / Time No Known Allergies Allergy Verified 07/29/25 09:13 Review of Systems Review of Systems: Pertinent positives per HPI. Patient denies any fever, chills, rash, headache, visual changes, dizziness, cough, runny nose, sore throat, shortness of breath, chest pain, palpitations, nausea, vomiting, diarrhea, constipation, abdominal pain, or any urinary issues. [facility] Past Medical History Medical History Remove/insert IUD Remove/insert IUD Encounter for screening examination for sexually transmitted disease Anxiety Arthritis Depression Migraines Lupus Surgical History Surgical History History of gynecological procedure (07/27/25) lizzeth iud removal and insertion History of gynecological procedure (05/08/22) lizzeth iud insertion Family History Family History Mother Thyroid disease Depression Father Depression Sibling Depression Social History Social History Smoking status: Current some day smoker Tobacco type: e-cigarettes/vaping Second hand tobacco smoke exposure: No Alcohol intake: never Substance use: current Substance use type: marijuana Other substance usage details: daily Do You Feel Safe in your Home?: Yes Lack of Transportation: No Lack of Food: Sometimes True Current Housing: I Have Housing Concerned About Future Housing: No Difficulty Paying Gas/Electric Bills: YES Difficulty Paying for Meds: No Currently Unemployed: No Education: Master's Degree or Higher Difficulty w/ Childcare or Family Care: No Living arrangements: with family Additional living arrangements comments: Occupation/Education: occupation Additional occupation/education comments: therapist Gender identity (if verbalized by the patient): Female Sexual Orientation (if Verbalized by the Patient): Bisexual Spiritual care concerns: No Comments At the time of my signature, I reviewed and agree with the nursing past medical, surgical, social, and family history. There is no relevant family history pertinent to the patient complaint. Exam Narrative: General: Well-developed, well nourished, in no apparent distress Head: Normocephalic, atraumatic. Cardio: Regular rate and rhythm, s1 and s2 normal, no murmur appreciated. Resp: Clear to auscultation bilaterally, no rhonchi, rales, wheezing or rubs. Musculoskeletal: No deformity, tender to palpation over the entire lumbar spine, pain to palpation over the paraspinous musculature around the lumbar region, grossly normal range of motion, muscle strength strong and equal in BLE. SLT positive at approximately 45?, patellar reflexes 2/4 bilaterally, negative foot drop, slow cautious gait and station Course Course Emergency Course: Portions of this record may have been created with voice recognition software. Vital Signs Vital signs: Vital Signs Temperature 36.8 C 07/29/25 09:08 Pulse Rate 88 07/29/25 09:08 Respiratory Rate 16 07/29/25 09:08 Blood Pressure 126/79 07/29/25 09:08 Pulse Oximetry 96 07/29/25 09:08 Oxygen Delivery Room Air 07/29/25 09:08 Temperature 36.4 C 07/29/25 11:10 Pulse Rate 80 07/29/25 11:10 Respiratory Rate 16 07/29/25 11:10 Blood Pressure 114/79 07/29/25 11:10 Pulse Oximetry 100 07/29/25 11:10 Oxygen Delivery Room Air 07/29/25 09:08 Vital signs reviewed MDM - Back Pain/Injury MDM Narrative Medical decision making narrative: At the time of visit patient is resting comfortably on the exam table. Patient appears to be nontoxic. Complaints of low back pain x2 weeks. States that the back pain worsened yesterday. Pain is sharp in the low back and she has numbness and tingling in her lower extremities and feels weak. Rates her pain a 9/10 currently. Has had a history of a pinched nerve and arthritis in her back. No loss of bowel or bladder. Denies any saddle anesthesia. Was having difficulty passing stool this morning due to the pain. Last bowel movement was yesterday. No blood in her stool. Denies any urinary symptoms. Last menstrual period was 1 week ago. Has taken ibuprofen this morning for her symptoms with minimal relief. Denies any recent falls. On exam patient has tender to palpation over the entire lumbar spine, pain to palpation over the paraspinous musculature around the lumbar region, grossly normal range of motion, muscle strength strong and equal in BLE. SLT positive at approximately 45?, patellar reflexes 2/4 bilaterally, negative foot drop, slow cautious gait and station. Orders for CT lumbar spine, urinalysis, CBC, and CMP was placed. Labs: CBC shows white blood cell count of 9.5, H&H of 14.442.2, accounts 357, neutrophils are 74.7 with lymphs of 18.4. Chemistry shows sodium of 137, potassium of 4.6, chloride 107, carbon dioxide of 21, under 14, creatinine 0.82, GFR is greater than 60, glucose 96, liver function tests normal limits. Urinalysis shows cloudy urine with 2+ blood 1+ leuko Estrace, 0-2 red blood cells and 11-20 white blood cells with 2+ bacteria. Bedside test was negative. Diagnostics: CT lumbar spine shows disc at L5-S1 with mild lumbar spondylosis. Medications: Rocephin 1 g IV piggyback Plan: Patient has bulging disc L5-S1 with mild lumbar spondylosis. Patient also has urinary tract infection. Rocephin 1 g IV piggyback was given in the emergency room to treat UTI. Will send in prescription for Medrol Dosepak, cephalexin, and hydrocodone for moderate to severe pain. Patient may take Tylenol or ibuprofen for miog-hd-gcffkzua pain. Recommend following up with PCP as she may need some neuro spine referral. Supportive measures were discussed with the patient and they voiced understanding discharge instructions and agrees to treatment plan. Return precautions reviewed Differential Diagnosis Differential diagnosis: Likely lumbar radiculopathy, sciatica, strain of lumbar region, renal colic, pyelonephritis, thoracic back pain, AAA and discitis Lab Data 07/29/25 09:50 07/29/25 09:50 Labs: Lab Results 07/29/25 07/29/25 Range/Units 09:48 09:50 WBC 9.5 (4.5-10.0) K/mm3 RBC 4.84 (4.2-5.4) M/mm3 Hgb 14.4 (12.0-15.0) g/dL Hct 42.2 (37.0-47.0) % MCV 87.2 (80-100) fl MCH 29.8 (26-34) pg MCHC 34.1 (32-36) g/dl RDW 12.0 (11.5-14.5) % Plt Count 357 (150-375) k/mm3 MPV 8.8 (7.4-10.4) fl Immature Gran % (Auto) 0.4 (0-0.5) % Neut % (Auto) 74.7 H (45.5-73.1) % Lymph % (Auto) 18.4 (18.3-44.2) % [place] % (Auto) 5.4 (2.6-8.5) % Eos % (Auto) 0.7 (0-4.4) % Baso % (Auto) 0.4 (0.2-1.2) % Lymph # (Auto) 1.75 (0.9-3.2) K/mm3 Imperial # (Auto) 0.5 (0.1-0.6) K/mm3 Eos # (Auto) 0.1 (0-0.3) K/mm3 Baso # (Auto) 0.0 (0.0-0.1) K/mm3 Abs Immat Gran (auto) 0.04 H (0.00-0.031) K/mm3 Absolute Neuts (auto) 7.1 H (1.3-6.7) K/mm3 Absolute Nucleated RBC 0.000 (0.0-0.012) K/mm3 Nucleated RBC % 0.0 (0.0-0.2) % Sodium 137 (137-145) mmol/L Potassium 4.6 (3.4-5.0) mmol/L Chloride 107 (98-107) mmol/L Carbon Dioxide 21 L (22-30) mmol/L Anion Gap 9 (4-12) mmol/L BUN 14 (7-17) mg/dL Creatinine 0.82 (0.7-1.0) mg/dL Estim Creat Clear Calc 101 ml/min Estimated GFR > 60 (59 - ) Glucose 96 (65-110) mg/dL Calcium 9.3 (8.4-10.2) mg/dL Total Bilirubin 0.7 (0.2-1.3) mg/dL AST 17 (14-36) U/L ALT 35 (6-35) U/L Alkaline Phosphatase 71 (38-126) U/L Total Protein 7.3 (6.3-8.2) g/dL Albumin 4.4 (3.5-5.1) g/dL Urine Color Yellow (Yellow) Urine Appearance Cloudy H (Clear) Urine pH 6.5 (5.0-9.0) Ur Specific [place] 1.021 (1.001-1.035) Urine Protein Trace (Negative) mg/dL Urine Glucose (UA) Negative (Negative) mg/dL Urine Ketones Negative (Negative) mg/dL Ur Blood (Man) 2+ H (Negative) Urine Nitrate Negative (Negative) Urine Bilirubin Negative (Negative) Urine Urobilinogen 1.0 (<2.0) mg/dL Leukocyte Esterase Rfl 1+ H (Negative) JASON/UL Urine RBC 0-2 (0-2) /hpf Urine WBC 11-20 H (0-3) /hpf Ur Squamous Epith Cells Moderate (Few) /hpf Urine Bacteria 2+ H /hpf Urine Casts 0-2 POC Urine HCG, Qual Negative (Negative) Imaging Data Radiologist's impression: ITS Impressions Lumbar Spine CT 07/29/25 10:12 IMPRESSION: 1. Mild lumbar spondylosis. Discharge Plan Discharge Clinical Impression: Lumbar spondylosis, Bulging disc UTI (urinary tract infection) Qualifiers: Urinary tract infection type: acute cystitis Hematuria presence: with hematuria Qualified Code(s): N30.01 - Acute cystitis with hematuria Patient Disposition: Home Condition: Stable Instructions: Antibiotic Form, Urinary Tract Infection in Women (ED), Acute Low Back Pain (ED) Additional Instructions: CT of the lumbar spine shows mild spondylosis with bulging disc L5-S1 Urinalysis shows you have a urinary tract infection All other labs reassuring. One dose of Rocephin was given in the ER. Start cephalexin tonight as prescribed Take Medrol Dosepak as prescribed May take hydrocodone as needed for moderate to severe pain Recommend Tylenol and ibuprofen as needed for uaqq-uu-[id number] pain May apply lidocaine patch to the affected area to help alleviate pain Follow-up with your primary care doctor in 3-5 days if symptoms persist or sooner if they worsen May return to the emergency room if you develop worsening of symptoms-unable to walk, worsening of numbness in your extremities, Patient Language: Belarusian Prescriptions: New cephalexin 500 mg capsule 500 mg PO Q12H 7 Days Qty: 14 0RF methylprednisolone [Medrol (Sixto)] 4 mg tablets,dose pack See Rx Instructions PO .COMPLEX Qty: 21 0RF Rx Instructions: orally per package directions hydrocodone-acetaminophen 5-325 mg tablet 1 tablet PO Q6H PRN (Reason: pain) 3 Days Qty: 12 0RF No Action lamotrigine [Lamictal] 100 mg tablet 100 mg PO DAILY Zyrtec 10 mg capsule 10 mg PO DAILY PRN buspirone 5 mg tablet 5 mg PO TID lithium carbonate 450 mg tablet extended release 450 mg PO QHS lithium carbonate 300 mg capsule 300 mg PO QHS cholecalciferol (vitamin D3) 125 mcg (5,000 unit) capsule 125 mcg PO DAILY Vraylar 4.5 mg capsule 4.5 mg PO DAILY hydroxychloroquine [Plaquenil] 200 mg tablet 200 mg PO DAILY Follow-up/Referrals: UNKNOWN,DOCTOR [Non-Staff] Stand Alone Forms: Work/School Release IP Time of Disposition: 11:11 Quality NIHSS Nursing Documentation ED NIHSS nursing documentation: reviewed/agree
[2025-07-29] MEDS: MORPHINE SULFATE (*CRX) 4 MG/ML INJ IV PUSH (09:50)
[2025-07-29] MEDS: ONDANSETRON INJ 4 MG/2 ML VIAL IV PUSH (09:50)
[2025-07-29 09:52] LABS: BEDSIDEPREGUCG Negative (Negative)
[2025-07-29 09:58] LABS: Hematocrit 42.2 % (37.0-47.0); Hemoglobin 14.4 g/dL (12.0-15.0); Immature Granulocyte Percent A 0.4 % (0-0.5); Lymphocytes Absolute Auto 1.75 K/mm3 (0.9-3.2); Mean Corpuscular HGB Conc 34.1 g/dl (32-36); Mean Corpuscular Hemoglobin 29.8 pg (26-34); Mean Corpuscular Volume 87.2 fl (80-100); Nucleated Red Blood Cells Absolute Auto 0.000 K/mm3 (0.0-0.012); Nucleated Red Blood Cells Perc 0.0 % (0.0-0.2); Platelet Count Result 357 k/mm3 (150-375); Red Blood Count 4.84 M/mm3 (4.2-5.4); White Blood Count 9.5 K/mm3 (4.5-10.0)
[2025-07-29 10:02] LABS: Add Urine Microscopic? YES; Appearance Urine Cloudy (Clear); Glucose Urine UA Negative (Negative); Leukocyte Esterase Ur 1+ LEU/UL (Negative); Nitrate Urine Negative (Negative); Non Pathogenic Casts 0-2; Specific Grav Ur 1.021 (1.001-1.035)
[2025-07-29 10:10] LABS: Alanine Aminotransferase 35 U/L (6-35); Albumin Level 4.4 g/dL (3.5-5.1); Alkaline Phosphatase 71 U/L (38-126); Anion Gap 9 mmol/L (4-12); Aspartate Amino Transferase 17 U/L (14-36); Bilirubin,Total 0.7 mg/dL (0.2-1.3); Blood Urea Nitrogen 14 mg/dL (7-17); Calcium 9.3 mg/dL (8.4-10.2); Carbon Dioxide 21 mmol/L (22-30); Chloride 107 mmol/L (98-107); Estimated CRCL calculation 101 ml/min; Estimated Glomerular Filt Rate > 60; Glucose 96 mg/dL (65-110); Potassium 4.6 mmol/L (3.4-5.0); Sodium 137 mmol/L (137-145); Total Protein 7.3 g/dL (6.3-8.2)
--- OUTSIDE RECORDS SUMMARY | 2025-07-29 10:15 | XMS_ITS | Encounter Summary ---
Author Organization [facility] Address [address] [place] [address] Care Team Providers Care Hot Oiler Name Role Phone Hudson Rivera MD Primary Care Provider [phone] Reason for Visit * Reason Onset Date Comments YELLOW FLAG 08/28/2023 RED FLAG 08/28/2023 Encounter Details Date Type Department Care Team (Late st Contact Info) Description 08/28/[address] 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 Please advise. BINDING MACHINE OPERATOR * Telephone Encounter - Sushma Mann - 08/28/2023 9:42 AM CST Upper Respiratory Symptoms (Congestion / Cough) Any of the following symptoms: Difficulty breathing? Yes The caller has been advised they will be transferred to a clinical coworker as they have presented information that may require further consultation or possible emergency action. 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 Internal Medicine [place] [address] [place] [address] Jenise Martin FNP [address] [place] [address] documented as of this encounter Visit Diagnoses Not on filedocumented in this encounter Additional Health Concerns Assessment Noted Time PHQ-9 Depression Total Score: 3 04/30/20 23 8:16 AM CDT documented as of this encounter Care Teams Hot Oiler Relationship Specialty [place] [address] [place] [address] PCP - General Internal Medicine 07/06/22 documented as of this encounter
--- OUTSIDE RECORDS SUMMARY | 2025-07-29 10:15 | XMS_ITS | Encounter Summary ---
Author Organization [facility] Address [address] [place] [address] Care Team Providers Care Stone Mason Name Role Phone Hudson Rivera MD Primary Care Provider [phone] Reason for Visit * Reason Comments Medication Authorization Encounter Details Date Type Department Care Team (Late st Contact Info) Description 03/22/2025 Telephone [facility] Internal Medicine Medina Mann [address] [facility] [address] [place] [address] [place] [address] [facility] [address] [place] [address] Medication Authorization Social History Tobacco Use [...] - 03/22/2025 11:19 AM CDT Copied from [facility] #[id number]. Topic: CPA Information Request - Authorization >> [...] Description 07/29/2025 12:00 PM CDT Video Visit [facility] Internal Medicine Medina Mann [address] [place] [address] Jenise Martin FNP [address] [place] [address] documented as of this encounter Visit Diagnoses Not on filedocumented in this encounter Additional Health Concerns Assessment Noted Time PHQ-9 Depression Total Score: 3 04/30/20 23 8:16 AM CDT documented as of this encounter Care Teams Stone Mason Relationship Specialty [place] [address] [place] [address] PCP - General Internal Medicine 07/06/22 documented as of this encounter
--- OUTSIDE RECORDS SUMMARY | 2025-07-29 10:15 | XMS_ITS | Encounter Summary ---
Author Organization [facility] Address [address] [place] [address] Care Team Providers Care Watchstander Name Role Phone Hudson Rivera MD Primary Care Provider Reason for Visit * Reason Comments Clinical Consult Before Scheduling Encounter Details Date Type Department Care Team (Late st Contact Info) Description 03/11/2024 Telephone [facility] Internal Medicine Medina Mann [address] [facility] [address] [place] [address] [place] [address] [address] [facility] [address] [place] [address] Clinical Consult Before Scheduling Social History [...] CDT Patient went to urgent care today [facility] in [place]. No labs were completed. Recently dx withgastritis. [...] a provider and chooses urgent care, recommend: [facility] Urgent Cares are preferable when needed to help to coordinate care. Click for list of [facility] Urgent Cares: [email or web address] Designed by Christoval QSV committee 2019 * Telephone Encounter - Riana Ernst - 03/11/2024 12:44 PM CDT Copied from [facility] #[id number]. Topic: Symptomatic Care >> Mar 11, 2024 12:42 PM Riana Cruz wrote: Caller has new symptoms and is seeking care. Age Range/Symptom: Adult: 18+ - Headache or Migraine Is your headache sudden onset and severe? Yes Caller Name: Rosaura Kumar Callback Number: [phone] (home) Call Notes: Rosaura Kumar called because she has a fever and been vomiting documented in this encounter Plan of Treatment Upcoming Encounters Date Type Department Care Team (Late st Contact Info) Description 07/29/2025 12:00 PM CDT Video Visit [facility] Internal Medicine Medina Mann [address] [facility] [address] [place] [address] Jenise Martin FNP [address] [facility] [address] [place] [phone] documented as of this encounter Visit Diagnoses Not on filedocumented in this encounter Additional Health Concerns Assessment Noted Time PHQ-9 Depression Total Score: 3 04/30/20 23 8:16 AM CDT documented as of this encounter Care Teams Watchstander Relationship Specialty [place] [address] [facility] [address] [place] [phone] PCP - General Internal Medicine 07/06/22 documented as of this encounter
--- OUTSIDE RECORDS SUMMARY | 2025-07-29 10:15 | XMS_ITS | Encounter Summary ---
Author Organization [facility] Address [address] [place] [address] Care Team Providers Care Tailman Name Role Phone Hudson Rivera MD Primary [...] 07/29/2025 12:00 PM CDT Video Visit [facility] Internal Medicine Medina Mann [address] [facility] [address] [place] [address] Jenise Martin FNP [address] [facility] [address] [place] [address] documented as of this encounter Visit Diagnoses Not on filedocumented in this encounter Additional Health Concerns Assessment Noted Time PHQ-9 Depression Total Score: 3 04/30/20 23 8:16 AM CDT documented as of this encounter Care Teams Tailman Relationship Specialty [place] [address] [facility] [address] [place] [phone] PCP - General Internal Medicine 07/06/22 documented as of this encounter
--- OUTSIDE RECORDS SUMMARY | 2025-07-29 10:15 | XMS_ITS | Clinical Summary ---
Author Organization [facility] Address [address] [facility] [place] [address] Care Team Providers Care Pbx Wire Chief Name Role Phone Hudson Rivera MD Primary Care Provider Source Comments [facility],non-owned Affiliates and Associated Physician Practices is amultiple site organization consisting of ambulatory clinics and hospital sitesin [place], [place], [place] and [place]. This disclosure is being madepursuant to the Care Everywhere program and may not contain all information available regarding this patient. Last updated 18.[facility] Allergies No known active allergies Medications * [...] medication safety. Labs 11/26/2022 were reviewed in [email or web address] system. CMP normal. CBC normal. UA with [...] now. 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 Not on file Not on mariah e Last Filed Vital Signs Vital Sign Reading Time Taken Comments Blood Pressure 114/77 09/12/2024 10:59 AM SYSTEMS SECURITY CONSULTANT Pulse 97 09/12/2024 10:59 AM SYSTEMS SECURITY CONSULTANT Temperature 36.4 C (97.5 F) 09/12/2024 10:59 AM SYSTEMS SECURITY CONSULTANT Respiratory Rate - - Oxygen Saturation 98% 09/08/2024 11:25 AM SYSTEMS SECURITY CONSULTANT Inhaled Oxygen Concentration - - Weight 91.2 kg (201 lb) 09/12/2024 10:59 AM SYSTEMS SECURITY CONSULTANT Height 165.1 cm (5' 5) 09/12/2024 10:59 AM SYSTEMS SECURITY CONSULTANT Body Mass Index 33.45 09/12/2024 10:59 AM SYSTEMS SECURITY CONSULTANT Plan of Treatment Health Maintenance Due Date [...] RFLX NAAT QUANT Routine 10/17/2023 12:40 PM SYSTEMS SECURITY CONSULTANT Need for hepatitis C screening test from Last 3 Months or Most Recently Relevant to Health Maintenance Results * HEPATITIS C AB SCREEN RFLX NAAT QUANT (10/17/2023 12:40 PM SYSTEMS SECURITY CONSULTANT) Hepatitis C Antibody Non-react lm Non-reac tive 10/17/2023 1:50 PM SYSTEMS SECURITY CONSULTANT [facility] Comment:Hepatitis C Antibody screen indicates no serologic evidence of past or current infection with Hepatitis C Virus. Patients with unexplained liver disease who are immunocompromised or suspected of having acute Hepatitis C infection may benefit from Nucleic Acid Test (NOMI) for Hepatitis C Viral RNA to confirm Hepatitis C status. Blood BLOOD SPECIMEN / Unknown Lab Venipuncture / Unknown 10/17/2023 12:40 PM SYSTEMS SECURITY CONSULTANT 10/17/2023 12:53 PM SYSTEMS SECURITY CONSULTANT Evin Reynolds MD LAB - CHEMISTRY ORDERABLES Formerly [facility] Result [facility] [address] [place] [address], [facility] [phone] from Last 3 Months or Most Recently Relevant to Health Maintenance Insurance [facility] Address: [address] [address] Care Teams Pbx Wire Chief Relationship Specialty [place] [address] [facility] [address] [place] [phone] PCP - General Internal Medicine 08/02/23
--- OUTSIDE RECORDS SUMMARY | 2025-07-29 10:15 | XMS_ITS | Encounter Summary ---
Author Organization [facility] Address [address] [place] [address] Care Team Providers Care Treatment Specialist Name Role Phone Hudson Rivera MD Primary Care Provider [phone] Reason for Visit * Reason Comments Patient Communication Encounter Details Date Type Department Care Team (Late st Contact Info) Description 03/26/2025 Telephone [facility] Internal Medicine Medina Johnathan [address] [facility] [address] [place] [address] [place] [address] [facility] [address] [place] [address] Patient Communication Social History Tobacco [...] - 03/26/2025 3:42 PM CDT Copied from [facility] #[id number]. Topic: CPA Information Request >> Mar 26, 2025 3:38 PM Avery Cruz wrote: Caller is returning phone call from clinic. Caller Name: Rosaura Meaghan Gauthiererd Patient/Caregiver Callback Number: [phone] Clinic Did Not Leave Note In Chart Call Notes: Holdenshahriar called in regarding a callback from the office of . Patient/Caller returning call, no note documented with instructions from clinic. I informed I would transfer to clinical staff for assistance. I called DIRECTOR HEART Line & no answer. I informed Rosaura someone from clinical staff will callback at their earliest conveincence. Please Advise, Attempted transfer to Backline/DIRECTOR HEART Line and no answer, message routed to pool. documented in this encounter Plan of Treatment Upcoming Encounters Date Type Department Care Team (Late st Contact Info) Description 07/29/2025 12:00 PM CDT Video Visit [facility] Internal Medicine Medina Mann [address] [place] [phone] Jenise Martin FNP [address] [place] [phone] documented as of this encounter Visit Diagnoses Not on filedocumented in this encounter Additional Health Concerns Assessment Noted Time PHQ-9 Depression Total Score: 3 04/30/20 23 8:16 AM CDT documented as of this encounter Care Teams Treatment Specialist Relationship Specialty [place] [address] [address] [facility] [address] [place] [address] PCP - General Internal Medicine 07/06/22 documented as of this encounter
--- OUTSIDE RECORDS SUMMARY | 2025-07-29 10:15 | XMS_ITS | Clinical Summary ---
Author Organization [facility] Address [address] [place] [address] Care Team Providers Care Mainspring Winder Name Role Phone Wendy Talbot MD Primary Care Provider [phone] Allergies No known active allergies Medications lamoTRIgine (LaMICtal) 100 mg tablet Take 100 mg by mouth daily Active calcium carb/vit D3/minerals (CALCIUM-VITAMI N D ORAL) daily Take 2 tabs daily Active polycarbophil (FIBERCON) 625 mg tablet daily Active vitamin J81-mifae acid 0.5-1 mg tablet Acti ve cholecalciferol [...] 12/07/2022 Assessment & Plan (12/07/2022 8:36 AM CASKET ASSEMBLER): Last value 28 on 11/26/2022. Increased per PCP. Systemic lupus erythematosus 08/09/2022 Assessment & Plan (12/07/2022 8:35 AM CASKET ASSEMBLER): Chronic, stable. Currently on hydroxychloroquine, azathioprine 150 mg daily. Main symptoms at this time include joint pains with inflammation. I recommend continuing hydroxychloroquine, Azathioprine same dose for now. Assessment & Plan (08/09/2022 1:09 PM CASKET ASSEMBLER): Chronic, stable. Currently on hydroxychloroquine 200 mg [...] medication Assessment & Plan (12/07/2022 8:36 AM CASKET ASSEMBLER): Patient is on immunosuppressive medication requiring intensive lab monitoring for medication safety. Labs 11/26/2022 were reviewed in [employer] system. CMP normal. CBC normal. UA with negative blood/protein. No evidence of medication toxicity. Assessment & Plan (08/09/2022 1:10 PM CASKET ASSEMBLER): Patient is on immunosuppressive medication requiring intensive lab monitoring for medication safety. Check labs to monitor for cytopenias or liver toxicity with azathioprine. Weight gain 08/09/2022 Assessment & Plan (08/09/2022 1:10 PM CASKET ASSEMBLER): Checking thyroid labs with history of weight gain. Screening for thyroid disorder 08/09/2022 Assessment & Plan (08/09/2022 1:10 PM CASKET ASSEMBLER): Checking thyroid labs with history of weight gain. Encounters Date Type Department Care Team Description 07/05/2025 4:19 PM CDT - 07/05/2025 11:59 PM CDT Hospital Encounter [facility] [address] [place] [address] Pre-employment health screening examination Discharge Disposition: Discharge to home or self care 07/05/2025 Orders Only [facility] [address] [facility] [address] [place] [address] Robson Fitzgerald MD Pre-employment health screening examination [...] Body Mass Index 28.63 12/07/2022 8:44 AM CASKET ASSEMBLER Plan of Treatment Health Maintenance Due Date [...] * T-SPOT.TB Blood (07/05/2025 8:51 AM CDT) [facility] T-SPOT.TB Negative SeeBelow Comment: Normal Value: Negative [...] test. T-SPOT.TB Panel A Spot Count 0 [facility] T-SPOT.TB Panel B Spot Count 0 [facility]OT.TB Negative Control Passed [facility] T-SPOT.TB Positive Control Passed [facility] Comment: Test Performed at: [facility] [employer] [address] [place] [address] CURTIS BEASLEY,PHD Blood 07/05/2025 8:51 AM CDT 07/05/2025 4:46 PM CDT Narrative [facility] - 07/07/2025 2:02 PM CDT Bill to [facility] - 4794 Patient is employed by/enrolled at:->[employer] Behavioral Health us Robson Fitzgerald MD LAB MICROBIOLOGY - GENERAL OR DERABLES Final Result [facility] Department [place] [address] * Varicella Zoster IgG antibody Blood (07/05/2025 8:51 AM CDT) [facility] IgG Reactive Reactive Comment:Reactive: Results colindres ggest response to immunization or prior exposure to the virus. Blood 07/05/2025 8:51 AM CDT 07/05/2025 4:37 PM CDT Narrative [facility] - 07/06/2025 8:52 AM CDT Bill to [facility] - 1520. Patient is employed by/enrolled at:->[employer] [facility] Behavioral Health us Robson Fitzgerald MD LAB MICROBIOLOGY - GENERAL OR DERABLES Final Result [facility] Department [place] [address] from Last 3 Months Insurance [employer] OOS [employer] Care Teams Mainspring Winder Relationship Specialty Start Date End Date Wendy Talbot MD [address] [place] [address] PCP - General Internal Medicine 01/30/25
--- OUTSIDE RECORDS SUMMARY | 2025-07-29 10:15 | XMS_ITS | Clinical Summary ---
Author Organization [facility] Address [address] [place] [address] Care Team Providers Care Dust Mop Maker Name Role Phone Hudson Rivera MD Primary [...] Description 07/29/2025 12:00 PM CDT Video Visit [facility] Internal Medicine [facility] [address] [address] [place] [address] Jenise Martin FNP 07/29/2025 Telephone [facility] Internal Medicine [facility] [address] [employer] [address] [address] [place] [address] Hudson Rivera MD Patient Communication 07/29/2025 Nurse Triage [facility] Internal Medicine [facility] [address] [employer] [address] [address] [place] [address] Michelle Snyder RN 07/28/2025 External Device Data [...] PNEUM OCOCCAL CONJUGATE VACCINE 20-VALENT (PCV20), POLYSACCHARIDE [id number] CONJUGATE, ADJUVANT 0.5 ML (PF) IM 08/20/2023 [...] Comments Blood Pressure 106/74 08/24/2024 8:38 AM MULTIPLE SPINDLE SCREW MACHINE OPERATOR Pulse 88 08/24/2024 8:38 AM MULTIPLE SPINDLE SCREW MACHINE OPERATOR Temperature 36.3 C (97.3 F) 08/24/2024 8:38 AM MULTIPLE SPINDLE SCREW MACHINE OPERATOR Respiratory Rate 18 12/09/2023 1:50 PM CDT Oxygen Saturation 97% 08/24/2024 8:38 AM MULTIPLE SPINDLE SCREW MACHINE OPERATOR Inhaled Oxygen Concentration - - Weight 83.9 kg (185 lb) 03/26/2025 3:44 PM CDT Height 167.6 cm (5' 6) 03/26/2025 3:44 PM CDT Body Mass Index 29.86 03/26/2025 3:44 PM CDT Plan of Treatment Upcoming Encounters Date Type Department Care Team (Late st Contact Info) Description 07/29/2025 12:00 PM CDT Video Visit [facility] Internal Medicine Medina Mann [address] [place] [address] Jenise Martin FNP [address] [place] [address] Health [...] B VACCINES Completed 07/26/2000, 1999, 1999 Insurance [facility] BLUE PREFERRED Advance Directives For more information, please contact: [phone] * Full Code (Latest Code Status on File) Date Activated Date Inactivated Comments 12/09/2023 12:39 PM 12/09/2023 4:18 PM Care Teams Dust Mop Maker Relationship Specialty [place] [address] [facility] [address] [place] [phone] PCP - General Internal Medicine 07/06/22
--- OUTSIDE RECORDS SUMMARY | 2025-07-29 10:15 | XMS_ITS | Encounter Summary ---
Author Organization [facility] Address [address] [place] [address] Care Team Providers Care Weight Shifter Name Role Phone Hudson Rivera MD Primary Care Provider Reason for Visit * Reason Comments Patient Communication Encounter Details Date Type Department Care Team (Late st Contact Info) Description 07/29/2025 Telephone [facility] Internal Medicine Medina Mann [address] [employer] [facility] [address] [place] [address] [place] [address] [address] [facility] [address] [place] [address] Patient Communication Social History Tobacco Use [...] her take her to the ER.. Advised [facility] but she stated she lives in [place] and will go to a hospital nearest to her. * Telephone Encounter - Elaine Vidal PCA - 07/29/2025 8:18 AM CDT Copied from [facility] #[id number]. Topic: CPA Information Request >> Jul 29, 2025 8:16 AM Elaine Freeman wrote: Caller is returning phone call from clinic. Caller Name: Rosaura Kumar Patient/Caregiver Callback Number: Telephone Information: Patient Has Additional Questions Are the credentials of the caregiver who talked to the patient escrow assistant? No Call Notes: Patient/Caller requires a call [...] Description 07/29/2025 12:00 PM CDT Video Visit [facility] Internal Medicine Medina Mann [address] [place] [address] Jenise Martin FNP [address] [place] [address] documented as of this encounter Visit Diagnoses Not on filedocumented in this encounter Additional Health Concerns Assessment Noted Time PHQ-9 Depression Total Score: 3 04/30/20 23 8:16 AM CDT documented as of this encounter Care Teams Weight Shifter Relationship Specialty [place] [address] [address] [place] [address] PCP - General Internal Medicine 07/06/22 documented as of this encounter
--- OUTSIDE RECORDS SUMMARY | 2025-07-29 10:15 | XMS_ITS | Encounter Summary ---
Author Organization [facility] Address [address] [place] [address] Care Team Providers Care Feeder Switchboard Operator Name Role Phone Hudson Rivera MD Primary Care Provider [phone] Reason for Visit * Reason Onset Date Comments After Hours Ticket, Patient Needs Outreach 07/29 Encounter Details Date Type Department Care Team ([facility] Contact Info) Description 07/29/2025 Nurse Triage [facility] Internal Medicine Medina Johnathan [address] [facility] [address] [facility] [address] [place] [address] Michelle Snyder [...] 07/29/2025 12:00 PM CDT Video Visit [facility] Internal Medicine Medina Mann [address] [facility] [address] [place] [address] Jenise Martin FNP [address] [facility] [address] [place] [address] documented as of this encounter Visit Diagnoses Not on filedocumented in this encounter Additional Health Concerns Assessment Noted Time PHQ-9 Depression Total Score: 3 04/30/20 23 8:16 AM CDT documented as of this encounter Care Teams Feeder Switchboard Operator Relationship Specialty [place] [address] [facility] [address] [place] [address] PCP - General Internal Medicine 07/06/22 documented as of this encounter
--- OUTSIDE RECORDS SUMMARY | 2025-07-29 10:15 | XMS_ITS | Encounter Summary ---
Author Organization [facility] Address [address] [place] [address] Care Team Providers Care Warp Spooler Name Role Phone Hudson Rivera MD Primary [...] Description 07/29/2025 12:00 PM CDT Video Visit [facility] Internal Medicine Medina Mann [address] [employer] [facility] [address] [place] [address] Jenise Martin FNP [address] [facility] [address] [place] [address] documented as of this encounter Visit Diagnoses Not on filedocumented in this encounter Additional Health Concerns Assessment Noted Time PHQ-9 Depression Total Score: 3 04/30/20 23 8:16 AM CDT documented as of this encounter Care Teams Warp Spooler Relationship Specialty [place] [address] [facility] [address] [place] [phone] PCP - General Internal Medicine 07/06/22 documented as of this encounter
[2025-07-29] MEDS: cefTRIAXone 1 GM in SODIUM CHLORIDE 0.9% IV 50 ML 100 ML IVPB (10:57)
[2025-07-29 11:10] VITALS: BP 114/79; PULSE 80; RESP 16; TEMP 36.4; O2SAT 100
--- OUTSIDE RECORDS SUMMARY | 2025-07-29 12:00 | XMS_ITS | Encounter Summary ---
Author Organization [facility] Address [address] [place] [address] Care Team Providers Care Material Inspector Name Role Phone Hudson Rivera MD Primary Care Provider Reason for Visit * Reason Comments Back Pain Encounter Details Date Type Department Care Team (Late st Contact Info) Description 07/29/2025 12:00 PM CDT Video Visit [facility] Internal Medicine Medina Jonhathan [address] [facility] [address] [place] [address] Jenise Martin FNP [address] [facility] [address] [place] [address] Social History Tobacco Use Types Packs/Day Years [...] as of this encounter Plan of Treatment Not on file documented as of this encounter Visit Diagnoses Not on filedocumented in this encounter Additional Health Concerns Assessment Noted Time PHQ-9 Depression Total Score: 3 04/30/20 23 8:16 AM CDT documented as of this encounter Care Teams Material Inspector Relationship Specialty [place] [address] [facility] [address] [place] [address] PCP - General Internal Medicine 07/06/22 documented as of this encounter
--- OUTSIDE RECORDS SUMMARY | 2025-07-29 12:00 | XMS_ITS | Encounter Summary ---
Author Organization [facility] Address [address] [place] [address] Care Team Providers Care Wind Energy Mechanic Name Role Phone Hudson Rivera MD Primary Care Provider Reason for Visit * Reason Comments Back Pain Encounter Details Date Type Department Care Team (Late st Contact Info) Description 07/29/2025 12:00 PM CDT Video Visit [facility] Internal Medicine [place] Johnathan [id number] [facility] [address] [place] [id number] Jenise Martin FNP [address] [facility] [address] [place] [address] Social History Tobacco Use Types Packs/Day [...] documented as of this encounter Care Teams Wind Energy Mechanic Relationship Specialty [place] [id number] [address] [facility] [address] [place] [id number] PCP - General Internal Medicine 07/06/22 documented as of this encounter
== END 2025-07-29 11:30 | disposition home or self-care (01) ==
PROVIDERS: Emergency Provider Nurse Practitioner Family
DX: M47.816 Spondylosis without myelopathy or radiculopathy, lumbar region (principal); M51.369 Other intervertebral disc degeneration, lumbar region without mention of lumbar back pain or lower extremity pain; N30.01 Acute cystitis with hematuria; F17.290 Nicotine dependence, other tobacco product, uncomplicated; Z79.899 Other long term (current) drug therapy
CPT/HCPCS: 36415; 72131; 80053; 81001; 81025; 85025; 96365; 96375; 99284; J0696; J2270; J2405

== ENCOUNTER 2025-08-12 20:01 | Emergency (ER) | payer OTHER, SELFPAY ==
[2025-08-12 20:03] VITALS: BP 118/75; PULSE 104; RESP 16; TEMP 36.6; O2SAT 100
--- NOTE | 2025-08-12 21:34 | ED.BACK ---
HPI - Back Pain/Injury General Chief Complaint: Back Pain/Injury Stated Complaint: lower back pain Time Seen by Provider: 08/12/25 21:05 History of Present Illness HPI Narrative: Patient is a 25-year-old female who presents to the ER with lower back pain. She reports her pain started approximately 2 weeks ago. Patient came in for evaluation at that time and it was revealed that she had a bulging disc. She reports she has been doing Tylenol and ibuprofen at home without much pain relief. Patient follow-up with her primary care provider who referred her to physical therapy. She reports she has started physical therapy yet, but has an appointment in a couple of weeks. Patient reports she has a history of lupus but denies any other medical history. She denies any saddle anesthesia, urinary symptoms, numbness/tingling down her legs. Related Data Home Medications ?Medication ?Instructions ?Recorded ?Confirmed ?Last Taken ?Type hydroxychloroquine 200 mg tablet 200 mg PO DAILY 07/27/20 07/27/25 08/03/20 History (Plaquenil) cetirizine 10 mg capsule (Zyrtec) 10 mg PO DAILY PRN 01/03/22 07/27/25 Unknown History lamotrigine 100 mg tablet 100 mg PO DAILY 01/03/22 07/27/25 Unknown History (Lamictal) buspirone 5 mg tablet 5 mg PO TID 06/07/25 07/27/25 Unknown History cariprazine 4.5 mg capsule 4.5 mg PO DAILY 06/07/25 07/27/25 Unknown History (Vraylar) cholecalciferol (vitamin D3) 125 125 mcg PO DAILY 06/07/25 07/27/25 Unknown History mcg (5,000 unit) capsule lithium carbonate 300 mg capsule 300 mg PO QHS 06/07/25 07/27/25 Unknown History lithium carbonate 450 mg 450 mg PO QHS 06/07/25 07/27/25 Unknown History tablet,extended release Allergies Allergy/AdvReac Type Severity Reaction Status Date / Time No Known Allergies Allergy Verified 08/12/25 20:07 Review of Systems Review of Systems: All systems reviewed & are unremarkable except as noted in HPI and below PMFSH Past Medical History Medical History Remove/insert IUD Remove/insert IUD Encounter for screening examination for sexually transmitted disease Anxiety Arthritis Depression Migraines Lupus Surgical History Surgical History History of gynecological procedure (07/27/25) lizzeth iud removal and insertion History of gynecological procedure (05/08/22) lizzeth iud insertion Family History Family History Mother Thyroid disease Depression Father Depression Sibling Depression Social History Social History Smoking status: Current some day smoker Tobacco type: e-cigarettes/vaping Second hand tobacco smoke exposure: No Alcohol intake: never Substance use: current Substance use type: marijuana Other substance usage details: daily Do You Feel Safe in your Home?: Yes Lack of Transportation: No Lack of Food: Sometimes True Current Housing: I Have Housing Concerned About Future Housing: No Difficulty Paying Gas/Electric Bills: YES Difficulty Paying for Meds: No Currently Unemployed: No Education: Master's Degree or Higher Difficulty w/ Childcare or Family Care: No Living arrangements: with family Additional living arrangements comments: Occupation/Education: occupation Additional occupation/education comments: therapist Gender identity (if verbalized by the patient): Female Sexual Orientation (if Verbalized by the Patient): Bisexual Spiritual care concerns: No Exam Narrative: GENERAL: Well appearing, obese, non-toxic, in no acute distress. HEAD: Normocephalic, atraumatic. NECK: Supple. No adenopathy, no masses. RESPIRATORY: Airway patent, respirations nonlabored. Clear to auscultation bilaterally, no rales, rhonchi, wheezing. CARDIOVASCULAR: Regular rate and rhythm without murmurs, rubs, or gallops. Peripheral pulses 2+ and equal bilaterally. ABDOMINAL: Soft, nontender, nondistended, no hepatosplenomegaly. Normoactive BS. MUSCULOSKELETAL: Moves all extremities. Strength/ROM intact without gross deformities. SKIN: Warm, dry, normal color. No rashes. NEURO: A&O X3. Speech clear. Cranial nerves II-XII intact. No ataxic movements. PSYCHIATRIC: Appropriate mood, flat affect. Normal interaction. Course Vital Signs Vital signs: Vital Signs Temperature 36.6 C 08/12/25 20:03 Pulse Rate 104 H 08/12/25 20:03 Respiratory Rate 16 08/12/25 20:03 Blood Pressure 118/75 08/12/25 20:03 Pulse Oximetry 100 08/12/25 20:03 Oxygen Delivery Room Air 08/12/25 20:03 Temperature 36.6 C 08/12/25 20:03 Pulse Rate 104 H 08/12/25 20:03 Respiratory Rate 16 08/12/25 20:03 Blood Pressure 118/75 08/12/25 20:03 Pulse Oximetry 100 08/12/25 20:03 Oxygen Delivery Room Air 08/12/25 20:03 MDM - Back Pain/Injury MDM Narrative Medical decision making narrative: Patient is a 25-year-old female who presents to the ER with lower back pain. She reports her pain started approximately 2 weeks ago. Patient came in for evaluation at that time and it was revealed that she had a bulging disc. She reports she has been doing Tylenol and ibuprofen at home without much pain relief. Patient follow-up with her primary care provider who referred her to physical therapy. She reports she has started physical therapy yet, but has an appointment in a couple of weeks. Patient reports she has a history of lupus but denies any other medical history. She denies any saddle anesthesia, urinary symptoms, numbness/tingling down her legs. Patient had CT imaging performed on her back approximately 2 weeks ago. Medications Ordered: Toradol 60 mg IM, prednisone 40 mg p.o., Kake 1 tablet, Zanaflex 2 mg p.o. Diagnosis: Bulging disc, lumbar radiculopathy Consults: neurosurgery (outpatient), Dr. Mancera Patient Education/Shared MDM: Patient initially had mild pain relief following Toradol and Prednisone administration, but endorses significant improvement of symptoms following medication administration. Patient strongly advised to follow through with physical therapy and follow-up with neurosurgery. She will be discharged home with a prescription for Zanaflex and Prednisone. Patient reports she ready has lidocaine patches at home. Strict return precautions provided. Patient verbalized understanding and is in agreement with plan. Vital signs stable at time of discharge. All questions answered. Differential Diagnosis Differential diagnosis: Likely lumbar radiculopathy, sciatica and strain of lumbar region Discharge Plan Discharge Clinical Impression: Lumbar radiculopathy, Bulging disc Patient Disposition: Home Condition: Stable Instructions: Antibiotic Form, Back Pain (ED), Lower Back Exercises (ED) Additional Instructions: Please return to the ER with any worsening symptoms. Follow-up with Neurosurgery as soon as possible for further evaluation and treatment. Take all medications as prescribed, including regularly scheduled medications. You may take Tylenol and/or ibuprofen, along with a muscle relaxant and steroids for pain relief. Patient Language: Arabic Prescriptions: New prednisone 20 mg tablet 20 mg PO BID Qty: 10 0RF tizanidine [Zanaflex] 4 mg capsule 4 mg PO BID PRN (Reason: muscle spasticity) Qty: 20 0RF No Action lamotrigine [Lamictal] 100 mg tablet 100 mg PO DAILY Zyrtec 10 mg capsule 10 mg PO DAILY PRN buspirone 5 mg tablet 5 mg PO TID lithium carbonate 450 mg tablet extended release 450 mg PO QHS lithium carbonate 300 mg capsule 300 mg PO QHS cholecalciferol (vitamin D3) 125 mcg (5,000 unit) capsule 125 mcg PO DAILY Vraylar 4.5 mg capsule 4.5 mg PO DAILY cephalexin 500 mg capsule 500 mg PO Q12H 7 Days Qty: 14 0RF methylprednisolone [Medrol (Sixto)] 4 mg tablets,dose pack See Rx Instructions PO .COMPLEX Qty: 21 0RF Rx Instructions: orally per package directions hydrocodone-acetaminophen 5-325 mg tablet 1 tablet PO Q6H PRN (Reason: pain) 3 Days Qty: 12 0RF hydroxychloroquine [Plaquenil] 200 mg tablet 200 mg PO DAILY Follow-up/Referrals: Miguel,Hudson [Other] Buck Mancera MD [Physician, Neurosurgery] Stand Alone Forms: Work/School Release IP Time of Disposition: 23:23
[2025-08-12] MEDS: KETOROLAC (*BKC) 60 MG/2 ML VIAL IM (21:41)
[2025-08-12] MEDS: TIZANIDINE HCL 2 MG TABLET PO (22:50)
[2025-08-12] MEDS: HYDROcodone/acetaminophen (*CRX) 5-325 MG TABLET 1 TAB PO (22:50)
== END 2025-08-12 23:34 | disposition home or self-care (01) ==
PROVIDERS: Emergency Provider Registered Nurse
DX: M51.16 Intervertebral disc disorders with radiculopathy, lumbar region (principal); M32.9 Systemic lupus erythematosus, unspecified; F41.8 Other specified anxiety disorders
CPT/HCPCS: 96372; 99283; A9270; J1885; J7512